=== PATIENT | male | born 1950 | race Caucasian/White ===

== ENCOUNTER 2024-03-07 20:38 | Observation (INO) | payer MEDICARE, BC, SELFPAY ==
[2024-03-07] VITALS (8 sets, daily range): BP systolic 153–191; BP diastolic 84–105; BMI 26.6
[2024-03-07 17:54] LABS: % Basophils 0.5 % (0-2); % Eosinophils 1.8 % (0-6); % Immature Granulocytes 0.8 % (0-0.5); % Lymphocytes 23.8 % (20.5-51.1); % Neutrophils 66.1 % (42.2-75.2); Absolute Eosinophils 0.1 10^3/uL (0-0.7); Absolute Immature Granulocytes 0.1 10^3/uL (0-0.05); Absolute Lymphocytes 1.8 10^3/uL (1.2-3.4); Absolute Monocytes 0.5 10^3/uL (0.1-0.6); Absolute Neutrophils 5.1 10^3/uL (1.4-6.5); Hematocrit 40.1 % (39.0-52.0); Hemoglobin 14.3 g/dL (13.0-18.0); Mean Corp Hgb Conc. 35.7 g/dL (33.0-37.0); Mean Corpuscular Hgb 32.1 pg (27.0-31.0); Mean Corpuscular Volume 90.1 fL (80.0-94.0); Mean Platelet Volume 10.4 fL (7.4-10.4); Nucleated Red Blood Cells % 0 % (-); Platelet Count 169 10^3/uL (130-400); Red Blood Cell Count 4.45 10^6/uL (4.70-6.10); Red Cell Dist. Width 12.8 % (11.5-14.5); White Blood Cell Count 7.7 10^3/uL (4.8-10.8)
[2024-03-07 18:03] LABS: ALT (SGPT) 26 U/L (0-50); AST (SGOT) 30 U/L (17-59); Albumin 4.6 g/dl (3.5-5.0); Alkaline Phosphatase 63 U/L (38-126); Blood Urea Nitrogen 29 mg/dl (9-20); Calcium 9.6 mg/dl (8.4-10.2); Carbon Dioxide 25 mmol/L (22-30); Chloride 104 mmol/L (98-107); Glucose 179 mg/dl (70-99); Sodium 137 mmol/L (135-145); Total Bilirubin 1.3 mg/dl (0.2-1.3); Total Protein 7.6 g/dl (6.3-8.2); eGFR 58.37
--- NOTE | 2024-03-07 18:05 | ED.GENMED ---
History of Present Illness
General
Chief Complaint: Change in Mental Status
Source: patient and ambulance crew
Exam Limitations: none
Time Seen by Provider: 03/07/24 17:45
Nursing documentation reviewed up to this point in time: agreed with
History of Present Illness
History of Present Illness:
73-year-old male with a past medical history of hyperlipidemia who presents to the emergency room via EMS for evaluation of confusion. Patient was apparently at dinner with his prior to arrival, he says that he was in the middle of the meal
and became acutely confused. Per EMS reported that he was 'smiling funny' and appeared very confused. EMS brought patient to the emergency room evaluated. He was hypertensive per EMS but otherwise normal vitals. Blood glucose was normal.
On arrival patient says he is anxious and is having some difficulty with recall/cognition. He denies any headache. Denies any neck pain. He denies any weakness or numbness in his extremities. He denies any difficulty with his speech or slurring
of his speech. He denies any loss of vision. He denies any other complaints. He is not on blood thinners.
Review of Systems
Review of Systems
All Other Systems: ROS reviewed and negative except as documented in HPI and ROS
Constitutional: Denies fever
Respiratory: Denies trouble breathing
Cardiac: Denies chest pain or palpitations
ABD/GI: Denies abdominal pain, nausea or vomiting
: Denies flank pain
Musculoskeletal: Denies neck pain or back pain
Neurological: Reports other (Confusion); Denies dizzy, headache, weakness or numbness
Psychiatric: Reports anxiety
Phy Exam
Physical Exam
Physical Exam:
General: Awake, alert, oriented x2 (difficulty with year); anxious but not in acute distress
Head: Normocephalic, atraumatic
Eyes: Conjunctiva normal, EOMI, pupils equal round reactive to light bilaterally
Throat: Airway intact, handling secretions
Neck: Trachea midline, supple without meningismus
Lungs: Clear to auscultation bilaterally, no wheezing, rales, rhonchi
Heart: Regular rate and rhythm, no murmurs, gallops, or rubs
Abd: Soft, non distended, nontender
Neuro: Cranial nerves intact 2 through 12, speech is fluent with no dysarthria or aphasia, no limb ataxia, motor and sensory function is intact and symmetric in the upper and lower extremities
Skin: no rash
Extremities: No edema in extremities, equal pulses in all extremities
Scores
NIH Stroke Score
Level of Consciousness: 0 - Alert
LOC Questions: 1-Answers one correctly
LOC Commands: 0-Performs both correctly
Best Horizontal Gaze: 0-Normal
Visual Carlos: 0=Normal, no visual loss
Facial Palsy: 0=Normal, symmetrical
Motor - Right Arm: 0=No drift 10 seconds
Motor - Left Arm: 0=No drift 10 seconds
Motor - Right Le-No drift 5 seconds
Motor - Left Le-No drift 5 seconds
Limb Ataxia: 0-Absent
Sensation: 0-Normal
Best Language: 0-No aphasia
Dysarthria: 0-Normal
Extinction and Inattention: 0-No abnormality
Total Score:: 1
Heart Failure Risk
Heart Failure Risk Score: Not Applicable
Heart Score for Chest Pain Patients
STEMI patient?: Not applicable
Withdrawal Assessment of Alcohol
Withdrawal Assessment Completed?: Not applicable
Course
Orders/Labs/Results
Orders:
Orders
03/07/24 17:45
CMP [Comprehensive Metabolic Panel] Urgent
Complete Blood Count/With Diff Urgent
03/07/24 17:51
CT Head W/o Cont STROKE ALERT Urgent
Reason For Exam: CVA
03/07/24 17:57
NEUROLOGY CONSULT Urgent
Consulting Provider: Tone Anne
Was physician already notified: Yes
03/07/24 18:32
HydrALAZINE [Apresoline] 5 mg IV NOW STA
03/07/24 18:33
Aspirin 325 mg PO NOW STA
03/07/24 19:23
Electrocardiogram (*1) Urgent
Reason for Study: TIA/Stroke
EKG- Treatment ONCE
Abnormal Lab Results
03/07/24
17:45
RBC 4.45 L 10^6/uL
(4.70-6.10)
MCH 32.1 H pg
(27.0-31.0)
Abs Immat Gran (auto) 0.1 H 10^3/uL
(0-0.05)
Immature Gran % 0.8 H %
(0-0.5)
BUN 29 H mg/dl
(9-20)
Glucose 179 H mg/dl
(70-99)
03/07/24 17:45
03/07/24 17:45
Vital Signs
Initial and Last Documented VS:
Initial Vital Signs
BP
191/105
03/07/24 17:40
Last Documented Vital Signs
Pulse Resp BP Pulse Ox
80 17 161/86 98
03/07/24 18:45 03/07/24 18:45 03/07/24 18:45 03/07/24 18:43
MDM/Problems Addressed
Differential Diagnosis Includes:
Stroke/TIA, transient global amnesia, seizure, complex migraine, hypertensive crisis
MDM/Problems Addressed:
73-year-old male with past medical history of hyperlipidemia who presents to the emergency room via EMS for acute onset of confusion at dinner tonight. Onset was roughly 5 PM. Hypertensive but otherwise normal vitals. Physical exam as above. He
still has some slight difficulty with recall�had trouble with telling me the year, had trouble telling me his address/where he lives. No other focal neurologic findings on exam. NIH stroke scale 1. Stroke alert was called on arrival. Will send
for a CT head. Will check CBC, CMP, EKG. Case was discussed with neurology who are en route to evaluate.
CT head negative. Labs reviewed: CBC and CMP no clinically significant abnormalities. Neurology evaluated the bedside; suspect likely hypertensive crisis. Recommended hydralazine 5 mg, goal blood pressure initially 160/90. Treated with aspirin,
no Plavix for now. Admit for continued observation, MRI/MRA to rule out stroke or carotid disease.
Blood pressure improved after hydralazine now 161/86. Patient's symptoms seem to have resolved now awake and alert with no confusion or cognitive issues. Will admit for continued care, case discussed with hospitalist for admission.
Chronic conditions affecting care:
Hyperlipidemia
Acute Exacerbation and/or Progression of Chronic Illness:
Acutely hypertensive
Acute Exacerbation and/or Progression of Chronic Illness: HTN
*Radiology
Radiology exam reviewed: radiology read reviewed
*Pulse Oximetry
Patient hypoxic: no
*EKG
Interpreted by ED Provider?: Yes
Heart Rate: 74
Rate: normal
Rhythm: sinus
Sealy: normal axis
Interval: normal interval
QRS Pattern: right bundle branch block
Ischemia: no ischemia
*Critical Care Note
Total Time (30-74mins, 75-104mins- exclusive of procedures): Not Applicable
Data Reviewed
Source: patient and ambulance crew
Patient Management
Discussion with other providers: Hospitalist (Discussed with hospitalist) and Crack Off Person (Case discussed with neurology)
Escalation/DeEscalation of care consider admission/obs:
Admission indicated
ED Attending Note
-
Portions of this chart may have been created with voice recognition software.� Occasional wrong word or��sound alike� substitutions may have occurred due to the inherent limitations of voice recognition software.
Discharge Plan
Departure
Patient Disposition: Admit
Date of Disposition: 03/07/24
Time of Disposition: 19:25
Admit to doctor: Jered
Presentation/result/management discussed w/ accepting MD/DO: Hospitalist
Discharge Problem:
Hypertensive crisis, Brain TIA
Prescriptions:
No Action
sildenafil 25 mg tablet
25 mg PO DAILYPRN PRN (Reason: ed)
omeprazole 20 mg Tablet,Delayed Release (Dr/Ec)
20 mg PO DAILYPRN PRN (Reason: gerd)
Interventions
Interventions:
*Risk Screen - Suicide Last Done: 03/07/24 17:43
*General Assessment Last Done: 03/07/24 17:43
*Neglect/Abuse Screening Last Done: 03/07/24 17:43
*ED COVID-19 Vaccine History Last Done: 03/07/24 17:43
ED- Neurological Assessment Last Done: 03/07/24 18:07
ED Swallowing Screen Last Done: 03/07/24 18:35
Discharge Date and Time
Print Language: FILIPINO
[2024-03-07] MEDS: ASPIRIN 325 MG PO (18:44)
[2024-03-07] MEDS: APRESOLINE 5 MG IV (18:45)
--- NOTE | 2024-03-07 19:27 | HPS.HSE ---
Addendum entered and electronically signed by Ulises Lawton DO 03/07/24 21:26:
Patient seen and examined independently. Agree with findings and plan as set forth by TRACEE Murillo.
Patient is a 73y M with PMH significant for hypertension and aortic stenosis who presents to ED for evaluation of episode of confusion this evening. Patient was out to dinner with his when she noted he was 'smiling oddly' and not making any
sense in speech. EMS was called and patient was brought to the ED for further evaluation. He was hypertensive for EMS and on arrival here to the ED. Patient was AA+Ox3 for EMS and here in the ED. He does not recall the events at dinner.
Patient states that he is having floors refinished / varnished in his home. He has been sleeping in the basement and notes that he has felt 'a little lightheaded' recently which he attributes to the fumes.
He took a Viagra this AM (he uses this PRN).
Ass:
Confusion
? TIA versus Hypertensive Emergency v Other
Hypertension - Not Benign
Aortic Stenosis
GERD
Plan:
Observe overnight for further evaluation and treatment.
Follow for any new / recurrent Neuro changes.
MRI in AM.
Continue ASA daily for now.
Monitor BP for changes. Hydralazine PRN to keep SBP < 160.
Add PO medication in the AM if needed for ongoing BP control.
Neurology evaluation appreciated.
? Episode related to fumes exposure, etc.
Original Note:
Family Physician
-
Family Physician: Darinel Salcedo
Chief Complaint
-
confusion
History of Present Illness
73 year old with PMH For HLD,aortic valve stenosis, GERD presented to us with confusion while he was having dinner at the restaurant. patient does not remember anything. the confusion lasted for 20minutes, till he got here. at present mentation
improved. he is able to answers question appropriately. he denied any focal weakness. denied ZAMORANO, dizzy or syncopal episode. denied fever chills, chest pain, sob. denied abdominal pain,n,v,d. denied dysuria or hematuria.
he is getting his floor done, they been staying in the basement for past three days. the smell of fumes was making him slight lightheaded.
CT head negative. patient was noted hypertensive. received a dose of hydralazine in ER. admitting for further management.
Medical History
Past Medical History
Past Medical History: Reports Other
Additional Past Medical History:
GERD
Hyperlipidemia
Aortic valve stenosis
Past Surgical History: Reports Other
Additional Past Surgical History:
Teeth implant
Cataract both eyes
Knee surgery
Social History
Tobacco: Non-smoker
Alcohol: Occasional
Drug: None
Personal:
Living: With Family
Family History
Family History: Not pertinent
Allergies / Home Medications
Allergies reflects when Allergies were last updated in [facility].
Home Medications with original date entered in [facility]
Allergy/Medication List:
Allergies
Allergy/AdvReac Type Severity Reaction Status Date / Time
No Known Allergies Allergy Verified 03/07/24 17:43
Home Medications
omeprazole 20 mg tablet,delayed release 20 mg PO DAILYPRN PRN gerd 03/07/24
sildenafil 25 mg tablet 25 mg PO DAILYPRN PRN ed 03/07/24
Review of Systems
-
Constitutional: Reports No Symptoms
EENT: Reports No Symptoms
Respiratory: Reports No Symptoms
Cardiac: Reports No Symptoms
Abdomen/GI: Reports No Symptoms
: Reports No Symptoms
Musculoskeletal: Reports No Symptoms
Skin: Reports No Symptoms
Neurological: Reports Other (confusion)
Endocrine: Reports No Symptoms
Hematologic/Lymphatic: Reports No Symptoms
Psych: Reports No Symptoms
Physical Exam
Vital Signs
Vital Signs
Pulse Resp BP Pulse Ox
80 17 161/86 98
03/07/24 18:45 03/07/24 18:45 03/07/24 18:45 03/07/24 18:43
Physical Exam
General: Well Developed, Well Nourished and No Apparent Distress
HEENT: NormoCephalic, Moist mucous membranes and Atraumatic
Respiratory: Clear
Cardiac: S1/S2 and Regular Rhythm; No Murmur or Rub
GI: Soft, Non Tender, Non Distended and Normal Bowel Sounds; No Organomegaly
Rectal: Deferred by Provider
Musculoskeletal: No Clubbing, No Cyanosis and No Edema
Skin: No Rash
Neuro: AO x 3 and Nonfocal/grossly intact
Psych: Calm
Laboratory Results
-
03/07/24 17:45
03/07/24 17:45
Laboratory Results
Total Bilirubin 1.3 mg/dl (0.2-1.3) 03/07/24 17:45
AST 30 U/L (17-59) 03/07/24 17:45
ALT 26 U/L (0-50) 03/07/24 17:45
Alkaline Phosphatase 63 U/L (38-126) 03/07/24 17:45
Data Reviewed
-
CT Scan: Report Reviewed by me
Lab Data: Labs Reviewed by me
Impression/Plan
-
#metabolic encephalopathy likely from hypertensive urgency vs TIA
-at present mentation improved
-Blood pressure improved with IV hydralazine
-Continue aspirin
-Obtain MRI/MRI
-Obtain A1c, lipid profile
-PT/OT consult
-Neuro following patient
-Allow permissive hypertension with a goal of 160/90
-Head CT with no acute findings
-hydralazine added for SBp>160,DBP>90
#hxt of Aortic valve stenosis
-working on getting cardiology
#GERD
-PPI continued
#DVT prophylaxis
-scd
#CODE status
-full code
--- NOTE | 2024-03-07 21:15 | PTCARENOTE ---
Pt arrived from ED via stretcher and ambulated to bed. Pt is AAOx3, VSS, and w/o complaints of pain. Pt is resting comfortably w/ call iraheta within reach.
[2024-03-07 21:51] LABS: Troponin I 0.063 ng/ml
[2024-03-07] MEDS: LIPITOR 40 MG PO (22:07)
[2024-03-07 22:15] LABS: Urine Albumin Negative (Neg - Trace); Urine Bilirubin Negative (Negative); Urine Character Clear (Clear); Urine Color Yellow; Urine Glucose Negative (Negative); Urine Ketone Negative (Negative); Urine Leukocyte Trace (Negative); Urine Nitrite Negative (Negative); Urine Occult Blood Negative (Negative); Urine Specific Gravity 1.015 (<1.030); Urine Urobilinogen Negative (Neg - 1+); Urine pH 6.5 (5.0-9.0)
[2024-03-07 22:29] LABS: Urine Red Blood Cell 0-2 /HPF (0-2)
[2024-03-07 22:30] LABS: Urine Bacteria Few (Negative)
[2024-03-08 03:31] VITALS: BP 159/93
[2024-03-08 03:38] LABS: Troponin I 0.062 ng/ml
[2024-03-08] MEDS: PROTONIX 40 MG PO (08:08)
[2024-03-08] MEDS: LOW STRENGTH ASPIRIN 81 MG PO (08:08)
[2024-03-08] MEDS: FLUSH (NSS) 1 FLUSH IV (08:08)
[2024-03-08 08:12] VITALS: BP 179/96
[2024-03-08 08:22] LABS: Hematocrit 40.6 % (39.0-52.0); Hemoglobin 14.5 g/dL (13.0-18.0); Mean Corp Hgb Conc. 35.7 g/dL (33.0-37.0); Mean Corpuscular Hgb 32.7 pg (27.0-31.0); Mean Corpuscular Volume 91.4 fL (80.0-94.0); Mean Platelet Volume 11.1 fL (7.4-10.4); Platelet Count 167 10^3/uL (130-400); Red Blood Cell Count 4.44 10^6/uL (4.70-6.10); Red Cell Dist. Width 12.9 % (11.5-14.5); White Blood Cell Count 8.1 10^3/uL (4.8-10.8)
[2024-03-08 08:59] LABS: Blood Urea Nitrogen 26 mg/dl (9-20); Calcium 9.4 mg/dl (8.4-10.2); Carbon Dioxide 23 mmol/L (22-30); Chloride 104 mmol/L (98-107); Estimated Creatinine Clearance 48 ml/min; Glucose 78 mg/dl (70-99); HDL Cholesterol 42 mg/dl; LDL Cholesterol, Calculated 208 mg/dl; Potassium 4.1 mmol/L (3.5-5.1); Sodium 136 mmol/L (135-145); Total Cholesterol 276 mg/dl (50-199); Triglyceride 134 mg/dl (10-149); Very Low Density Lipoprotein 26 mg/dl (0-30); eGFR > 60.00
[2024-03-08 09:45] LABS: Glycohemoglobin (HgbA1c) 5.5 % (4.0-5.6)
--- NOTE | 2024-03-08 10:46 | CON.NEURO4 ---
Consultation - Neurology 4
-
CONSULTING PHYSICIAN: Tone Anne MD
REFERRING PHYSICIAN: Hospitalist
DICTATED BY: Tone Anne MD
DATE/TIME OF REQUEST: March 07, 2024
DATE/TIME OF CONSULTATION: March 07, 2024 1800
Reason for Consultation: Slurred speech
History of Present Illness:
This is a 73 year old right handed male who has presented to the hospital with (chief complaint) of confusion. He gives a history of untreated hypertension, hyperlipidemia who presents to the emergency room via EMS for evaluation of confusion.
Patient was apparently at dinner with his prior to arrival, he says that he was in the middle of the meal and became acutely confused. Per EMS reported that he was 'smiling odd manner' and appeared confused. EMS brought patient to the
emergency room evaluated. He was hypertensive per EMS but otherwise normal vitals. Blood glucose was normal. On arrival patient says he is anxious and is having some difficulty with recall/cognition. He denies any headache. Denies any neck
pain. He denies any weakness or numbness in his extremities. He denies any difficulty with his speech or slurring of his speech. He denies any loss of vision. He denies any other complaints. He is not on blood thinners.
At the time of my exam patient was asymptomatic
Past Medical History: Hypertension
Surgical History: None
Family History: Noncontributory
Social History: lives at home with his . Does not smoke
Allergies: No known allergies
Home Medications: Omeprazole 20, sildenafil
Review of Symptoms:
Patient denies any fever, headache, chest pain, shortness of breath, GI or symptoms.
�Per the HPI.�All systems are reviewed negative except above.
�-
Vital Signs:
The patient has a
Pulse Resp BP Pulse Ox
80 17 161/86 98
03/07/24 18:45 03/07/24 18:45 03/07/24 18:45 03/07/24 18:43
Physical Exam:
The patient is afebrile, heart sounds S1 and S2 are regular , and chest is clear to auscultation bilaterally.
Neurologic Examination:
The patient is awake, alert and oriented x 3. (He/She) is able to follow commands and answer questions appropriately. There is no aphasia or dysarthria. On cranial nerve assessment, pupils are 3 mm bilateral, round and reactive to light and
accommodation. Visual vera are full. Extraocular movements are intact. Facial sensations are intact and bilaterally symmetrical, there is no facial asymmetry. Hearing is intact bilaterally to normal conversation volume. Tongue palate and uvula
are midline. Sternocleidomastoid strengths are full bilaterally. Motor strengths are 5/5 bilateral upper and lower extremities on medical research [place] scale. There is no drift or involuntary movement noted. Deep tendon reflexes are 2+ bilateral
upper and lower extremities and Babinski is absent bilaterally. Sensations of pain, touch, temperature and vibration are intact and bilaterally symmetrical. There was no extinction noted on double simultaneous stimulation. Coordination is intact by
finger to nose bilaterally. Romberg's negative gait is within normal limits
Lab Results: See addendum
Neuro Imaging: CT head atrophy, small vessel disease mild ventricular enlargent
Impression:
(Mr. CHERI TRUJILLO is a 73 year old M who has presented to the hospital with (symptoms/chief complaint).
Differentials for the patient's presentation include:
1. Hypertensive crisis
2. TIA
Recommendations:
1. Blood pressure management
2. Aspirin 81 daily
3. MRI/MRA of the head
4. Low-dose statin
5.
Discussed patient care with: Hospitalist
Allergies
-
Allergies
Allergy/AdvReac Type Severity Reaction Status Date / Time
No Known Allergies Allergy Verified 03/07/24 17:43
Vital Signs and Labs
-
Vital Signs and Labs:
Vital Signs
Temp Pulse Resp BP Pulse Ox
36.6 C 65 18 179/96 97
03/08/24 08:12 03/08/24 08:12 03/08/24 08:12 03/08/24 08:12 03/08/24 08:12
Lab Results
03/08/24 06:43
03/08/24 06:43
Sodium 136 mmol/L (135-145) 03/08/24 06:43
Potassium 4.1 mmol/L (3.5-5.1) 03/08/24 06:43
BUN 26 mg/dl (9-20) H 03/08/24 06:43
Glucose 78 mg/dl (70-99) 03/08/24 06:43
Calcium 9.4 mg/dl (8.4-10.2) 03/08/24 06:43
LDL Cholesterol, Calc 208 mg/dl 03/08/24 06:43
Medications
-
Active Medications
Generic Name Dose Route Start Last Admin
Trade Name Freq PRN Reason Stop Dose Admin
Acetaminophen 650 mg 03/07/24 20:56
Acetaminophen 650 Mg Rectal Suppository RECTAL 04/04/24 20:55
Q4HPRN PRN
ZAMORANO, mild pain, or temp >100.4F
Acetaminophen 650 mg 03/07/24 20:56
Acetaminophen 325 Mg Tablet PO 04/04/24 20:55
Q4HPRN PRN
ZAMORANO, mild pain, or temp >100.4F
Aspirin 81 mg 03/08/24 08:00 03/08/24 08:08
Aspirin 81 Mg Chewable Tablet PO 04/05/24 07:59 81 mg
DAILY BALAJI Administration
Atorvastatin Calcium 40 mg 03/07/24 20:56 03/07/24 22:07
Atorvastatin (Lipitor) 40 Mg Tablet PO 04/04/24 20:55 40 mg
QPM BALAJI Administration
Hydralazine HCl 5 mg 03/08/24 00:00
Hydralazine 20 Mg/Ml Vial IV 04/05/24 00:00
Q6HPRN PRN
hypertension
Pantoprazole Sodium 40 mg 03/08/24 08:00 03/08/24 08:08
Pantoprazole 40 Mg Delayed Release Tablet PO 04/05/24 07:59 40 mg
DAILY BALAJI Administration
Sodium Chloride 0 flush 03/07/24 22:00 03/08/24 08:08
Sodium Chloride 0.9% (Flush) Syringe IV 04/04/24 21:59 1 flush
PER PROTOCOL BALAJI Administration
Home Medications
�Medication �Instructions �Recorded
omeprazole 20 mg tablet,delayed 20 mg PO DAILYPRN PRN gerd 03/07/24
release
sildenafil 25 mg tablet 25 mg PO DAILYPRN PRN ed 03/07/24
[2024-03-08 11:01] VITALS: BP 188/101; PULSE 70; O2SAT 96
--- NOTE | 2024-03-08 11:10 | W.PN.HOSP.TC ---
Addendum entered and electronically signed by Anabella Toussaint MD 03/08/24 12:36:
total DC time 36 min
Original Note:
Today's Communication/Plan
-
see A/P
Assessment / Plan
Assessment / Plan
73 yo M with PMH significant for hypertension and aortic stenosis who presented with confusion. Patient was out to dinner with his when she noted he was 'smiling oddly' and not making any sense in speech.
EMS was called and patient was brought to the ED for further evaluation. He was hypertensive for EMS and on arrival here to the ED.
Patient was AA+Ox3 for EMS and here in the ED. He does not recall the events at dinner.
Patient states that he is having floors refinished / varnished in his home. He has been sleeping in the basement and notes that he has felt 'a little lightheaded' recently which he attributes to the fumes.
He took a Viagra in the morning of admission (he uses this PRN).
A/P:
# Confusion, likely due to Hypertensive Emergency vs related to fumes exposure at home etc
Start Norvasc 5 mg
Acute stoke ruled out with negative MRI brain , MRA brain and neck reviewed also unrevealing
Neurology evaluation appreciated.
# Hypertension emergency
In addition IV hydralazine PRN, start Norvasc 5 mg
Monitor BP with PCP
# Aortic Stenosis
informed pt to follow up with card outpt
# GERD
updated on the phone
Anticipated Discharge: Today
Subjective/Interval History
-
Date of Service: March 08, 2024
Objective Data
-
Labs:
Laboratory Results
03/08/24
06:43
WBC 8.1
Hgb 14.5
Hct 40.6
Plt Count 167
Sodium 136
Potassium 4.1
Chloride 104
Carbon Dioxide 23
BUN 26 H
Creatinine 1.2
Glucose 78
Calcium 9.4
Vital Signs:
Vital Signs
Temp Pulse Resp BP Pulse Ox
36.6 C 65 18 179/96 97
03/08/24 08:12 03/08/24 08:12 03/08/24 08:12 03/08/24 08:12 03/08/24 08:12
Review of Systems
-
All other systems: Reviewed and negative
Physical Exam
-
General: Well Developed, Well Nourished, No Apparent Distress, Comfortable and Conversant; Negative Respiratory Distress
HEENT: Normocephalic, Atraumatic, Nose Appears Normal and Ears Appear Normal; Negative Oxygen
Respiratory: Clear to Auscultation and Non Labored Respirations; Negative Accessory Resp Muscle Use
Cardiac: Regular Rhythm, S1/S2 and Murmur (systolic)
GI: Soft, Nontender, Nondistended and Normal Bowel Sounds
Skin: Warm and Dry
Neuro: Awake, Alert, Oriented and AO x 3
Psych: Calm and Intact Judgement/Insight
Data Reviewed
-
MRI: Report Reviewed by me and Discussed with Patient
Labs: Labs Reviewed by me
[2024-03-08 11:55] VITALS: BP 176/94
[2024-03-08] MEDS: NORVASC 5 MG PO (12:18)
--- NOTE | 2024-03-08 12:31 | W.DCSUMMARY ---
Discharge Summary
Discharge Data
Date of Admission: 03/07/24
Date of Discharge: 03/08/24
-
Pending Results: No
Hospital Course
Principal Diagnosis:
Confusion, likely due to hypertension urgency versus fume exposure at home
Hypertension urgency
Chronic Diagnoses:�
Aortic Stenosis
Gastroesophageal reflux disease
Consultations:�
Neurology
Procedures:�
None
Clinical course:�
This is a 73-year-old male, with past medical history as stated above, who presented with confusion while having dinner with . He does not remember the episode, but according to his he was smiling oddly and was not making sense in his
speech. These symptoms resolved uneventfully.
Problem 1:
Confusion, likely due to hypertension urgency versus fume exposure at home.
He was started with Norvasc 5 mg daily and has been for him to follow-up with his PCP for blood pressure monitoring/control.
Acute stroke was ruled out with negative MRI brain. His MRA brain and neck were also unrevealing.
As for the rest of his medical problems, they were stable during his hospital stay.
Discharge Plan
-
Patient Disposition: Home (Routine Discharge)
Discharge Diagnosis/Procedures: resolved confusion likely due to hypertensive urgency
Condition: Fair
Diet: As tolerated, Low Fat, Low Cholesterol and Low Sodium
Activity: As tolerated
Driving Restrictions: As prior to admission
Referrals:
Darinel Salcedo MD [Family Provider] - in less than 1 week
Additional Discharge Medication Instructions: you were started with Norvasc 5 mg daily for better BP control
you were also started with baby ASA for stroke prevention.
Prescriptions:
New
amlodipine 5 mg Tablet
5 mg PO DAILY Qty: 30 0RF
aspirin 81 mg Tablet,Chewable
81 mg PO DAILY Qty: 30 0RF
Continued
sildenafil 25 mg tablet
25 mg PO DAILYPRN PRN (Reason: ed)
omeprazole 20 mg Tablet,Delayed Release (Dr/Ec)
20 mg PO DAILYPRN PRN (Reason: gerd)
Discharge Orders:
Discharge Patient (As Directed); Ordered 03/08/24
Ordered By: Anabella Toussaint
Discharge Date and Time
Print Language: YORUBA
--- NOTE | 2024-03-08 12:51 | PTOTSP ---
pt currently requires no assistance with simple ADLs, functional transfers, ambulation. no overt deficits noted, no acute OT needs identified. will sign off.
--- NOTE | 2024-03-08 13:06 | PTOTSP ---
SPEECH THERAPY SWALLOW AND SPEECH/LANGUAGE/COGNITIVE COMMUNICATION EVALUATION:
Patient exhibits grossly functional oropharyngeal swallow at this time. No history of dysphagia noted. MRI negative for acute intracranial abnormality. Recommend continue Regular texture solids, thin liquids. Medications whole with liquid as best
tolerated. General aspiration precautions. Skilled ST services for swallow therapy are not indicated at this time.
Patient exhibits grossly functional speech, expressive/receptive language, and cognitive communication skills. Patient endorsed mild STM difficulties at baseline. Patient appears to be at baseline level of functioning at this time. Skilled ST
services for speech/language/cognitive communication are not indicated at this time.
ST to sign off.
RECOMMEND:
1) Regular texture diet, thin liquids
2) Medications whole with liquid as best tolerated
3) General aspiration precautions
4) No skilled ST services are indicated at this time; ST to sign off
--- NOTE | 2024-03-08 17:17 | CM ---
Chart reviewed after patient had left for home and called him this afternoon. Pt advised he is (I) amb and adls, lives with his in a multistory home with 2 entry steps. Main floor has bedroom and bathroom, so no steps once inside if staying
on the main floor.
Pt denies need for resources or assistance.
PCP: Darinel Salcedo
Pharmacy: [facility] in [place]
== END 2024-03-08 13:14 | disposition home or self-care (01) ==
LOC: 4 EAST ACU 20:38
PROVIDERS: Registered Nurse; ADMITTING PHYSICIAN Hospitalist; ATTENDING PHYSICIAN Internal Medicine; CONSULT PHYSICIAN Psychiatry & Neurology Neurology; EMERGENCY PHYSICIAN Emergency Medicine; FAMILY PHYSICIAN Family Medicine
DX: I16.0 Hypertensive urgency (principal); R41.82 Altered mental status, unspecified; E78.5 Hyperlipidemia, unspecified; I10 Essential (primary) hypertension; K21.9 Gastro-esophageal reflux disease without esophagitis; I35.0 Nonrheumatic aortic (valve) stenosis; R42 Dizziness and giddiness; I67.82 Cerebral ischemia; G31.9 Degenerative disease of nervous system, unspecified; I67.1 Cerebral aneurysm, nonruptured; Z79.82 Long term (current) use of aspirin
CPT/HCPCS: 70450; 70544; 70548; 70551; 80048; 80053; 80061; 81003; 81015; 83036; 84484; 85025; 85027; 92523; 92610; 93005; 96374; 97161; 97165; 99285; A9575

== ENCOUNTER → 2024-08-07 08:21 | Outpatient (REF) | payer MEDICARE, BC, SELFPAY | LOC: HWRCS 08:21 | PROVIDERS: ATTENDING PHYSICIAN Internal Medicine Cardiovascular Disease; PRIMARYCARE PHYSICIAN Physician Assistant | DX: I10 Essential (primary) hypertension (principal) | CPT/HCPCS: 93306 ==

== ENCOUNTER → 2025-02-14 10:47 | Outpatient (REF) | payer MEDICARE, BC, SELFPAY | LOC: HWRAD 10:47 | PROVIDERS: ATTENDING PHYSICIAN Physician Assistant | DX: M54.2 Cervicalgia (principal) | CPT/HCPCS: 72052 ==

== ENCOUNTER → 2025-03-10 10:10 | Outpatient (REF) | payer MEDICARE, BC, SELFPAY | LOC: HWRCS 10:10 | PROVIDERS: ATTENDING PHYSICIAN Internal Medicine Cardiovascular Disease; FAMILY PHYSICIAN Physician Assistant | DX: I35.0 Nonrheumatic aortic (valve) stenosis (principal) | CPT/HCPCS: 93306 ==

== ENCOUNTER 2025-03-11 08:33 | Emergency (ER) | payer MEDICARE, BC, SELFPAY ==
[2025-03-11 08:37] VITALS: BP 176/98
[2025-03-11 09:12] LABS: Hematocrit 36.0 % (39.0-52.0); Hemoglobin 13.1 g/dL (13.0-18.0); Mean Corp Hgb Conc. 36.4 g/dL (33.0-37.0); Mean Corpuscular Volume 89.3 fL (80.0-94.0); Nucleated Red Blood Cells % 0 % (-); Platelet Count 173 10^3/uL (130-400); Red Cell Dist. Width 13.6 % (11.5-14.5)
[2025-03-11 09:18] LABS: INR 1.15; PT 15.1 Sec (11.4-14.6)
[2025-03-11 09:19] LABS: APTT 23.5 Sec (23.4-35.0)
[2025-03-11 09:28] LABS: ALT (SGPT) 32 U/L (0-50); AST (SGOT) 28 U/L (17-59); Albumin 4.6 g/dl (3.5-5.0); Alkaline Phosphatase 59 U/L (38-126); Blood Urea Nitrogen 34 mg/dl (9-20); Calcium 9.4 mg/dl (8.4-10.2); Carbon Dioxide 22 mmol/L (22-30); Chloride 106 mmol/L (98-107); Glucose 177 mg/dl (70-99); Potassium 4.1 mmol/L (3.5-5.1); Sodium 137 mmol/L (135-145); Total Protein 8.3 g/dl (6.3-8.2); eGFR > 60.00
[2025-03-11 09:36] LABS: Troponin I < 0.012 ng/ml
--- NOTE | 2025-03-11 11:38 | ED.GENMED ---
History of Present Illness
General
Chief Complaint: Eye Problems
Source: patient and spouse
Exam Limitations: none
Time Seen by Provider: 03/11/25 11:03
Nursing documentation reviewed up to this point in time: agreed with
History of Present Illness
History of Present Illness:
Patient is a 74-year-old male with history of aortic stenosis, hypertension, hyperlipidemia who presents to the emergency department concerns of double vision as well as transient episode of confusion this morning. Patient states that he started to
notice intermittent double vision yesterday only while he was driving. Today � he states that since he woke up this morning he has had constant double vision. He describes a horizontal double vision only when both eyes are open. He states that when
he is using his peripheral vision in either direction he does not see double.
Patients states that in addition to double vision this morning he seemed to be confused. He said a few things at home that just 'didn�t make sense'a and when she brought him to the primary care doctor for evaluation he could not remember his
address. She doesn�t believe that he was having difficulty necessarily finding words rather than a general confusion.
Patient denies any associated headache, nausea, dysarthria, dysphasia, or ataxia. He denies any weakness or numbness/tingling in his extremities. He denies recent head trauma.
Patient does have a history of a somewhat similar episode of transient confusion last year and was diagnosed with a suspected TIA. Patient takes a baby aspirin and a statin.
Review of Systems
Review of Systems
Allergies reviewed?: Yes
All Other Systems: ROS reviewed and negative except as documented in HPI and ROS
Phy Exam
Physical Exam
Physical Exam:
Vitals: Hypertensive, otherwise vital signs stable. Afebrile
General: Patient is anxious appearing.
Skin: Warm and dry, no rashes or lesions
Head: Normocephalic, atraumatic
Eyes: Sclera nonicteric. Pupils equal round and reactive to light bilaterally. EOMs intact. Visual vera intact with horizontal binocular diplopia. No nystagmus.
Throat: Protecting airway
Neck: Normal ROM, no cervical spine tenderness, no meningismus
Cardiac: Regular rate and rhythm, no murmurs.
Pulm: Normal respiratory effort, no wheezes, rales, rhonchi heard on exam
Abdomen: No abdominal tenderness.
Extremities: No evidence of cyanosis or edema. Strength 5/5 in bilateral upper and lower extremities. Sensation intact
Neuro: AAOx3. CN II-XII grossly intact on examination. Normal [id number]. Fluid speech. Steady gait. No facial droop or asymmetry
Psychiatric: Normal affect.
Course
Orders/Labs/Results
Orders:
Orders
03/11/25 08:[address] [CT Head W/o Iv Contrast] Urgent
Comment:
Reason For Exam: double vision
03/11/25 08:44
ECG [Electrocardiogram (*1)] Urgent
Reason for Study: Hypertension, Benign
03/11/25 08:45
EKG- Treatment ONCE
03/11/25 08:53
Alcohol Urgent
Cardiovascular Evaluation Urgent
Comment: ADDON
Complete Blood Count/With Diff Urgent
Comprehensive Metabolic Panel Urgent
Free T4 Urgent
PTT Urgent
Prothrombin Time Urgent
TSH Reflex To Free T4 Urgent
Comment: TSH REFLEX ADDED ON BY FLOOR 11:30AM 03-11-25
Troponin I Urgent
Vitamin B12 Urgent
Comment: ADDON
03/11/25 11:31
Add On- LAB Urgent
Tests Added?: TSH w/ reflex to T4
03/11/25 11:48
NEUROLOGY CONSULT Urgent
Consulting Provider: Ladarius Lehman
Was physician already notified: Yes
03/11/25 12:08
Add On- LAB Routine
Tests Added?: lipid panel, B12
03/11/25 12:44
Add On- LAB Urgent
Tests Added?: alcohol
03/11/25 13:05
Urine Drug Abuse Screen Urgent
Date Specimen was Collected: 03/11/25
Time Specimen was Collected: 13:03
Abnormal Lab Results
03/11/25
08:53
RBC 4.03 L 10^6/uL
(4.70-6.10)
Hct 36.0 L %
(39.0-52.0)
MCH 32.5 H pg
(27.0-31.0)
Absolute Monos (auto) 0.8 H 10^3/uL
(0.1-0.6)
PT 15.1 H Sec
(11.4-14.6)
BUN 34 H mg/dl
(9-20)
Glucose 177 H mg/dl
(70-99)
Total Bilirubin 1.6 H mg/dl
(0.2-1.3)
Total Protein 8.3 H g/dl
(6.3-8.2)
Triglycerides 178 H mg/dl
(10-149)
VLDL Cholesterol, Calc 35 H mg/dl
(0-30)
TSH (Reflex) 6.24 H uIU/ml
(0.47-4.68)
03/11/25 08:53
03/11/25 08:53
Vital Signs
Initial and Last Documented VS:
Initial Vital Signs
Temp Pulse Resp BP Pulse Ox
97.5 F 83 20 176/98 99
03/11/25 08:37 03/11/25 08:37 03/11/25 08:37 03/11/25 08:37 03/11/25 08:37
Last Documented Vital Signs
Temp Pulse Resp BP Pulse Ox
97.5 F 80 20 165/88 98
03/11/25 08:37 03/11/25 12:00 03/11/25 12:00 03/11/25 12:00 03/11/25 12:00
MDM/Problems Addressed
Differential Diagnosis Includes:
Not limited to: Viral illness, acute dehydration, CVA, cranial nerve palsy, hyperthyroidism, intracranial mass, etc.
MDM/Problems Addressed:
74-year-old male with history as documented presenting with binocular horizontal diplopia as well as transient confusion. No recent trauma. No other associated neurologic symptoms. Patient hypertensive on arrival with otherwise stable vital signs.
Physical exam as above.
Patient alert and oriented. No facial droop or asymmetry. Strength equal bilaterally with mild tremor. He has a normal cerebellar exam and visual vera appear intact. No obvious cranial nerve palsy however patient does have binocular horizontal
diplopia in central vision.
Basic labs and CT head obtained prior to my evaluation without any clinically significant abnormalities.
In light of double vision, along with transient confusion � concern for central process. Other possibilities would be viral illness, ocular etiology, hypertensive urgency, etc.
Neurology consulted who evaluated patient at bedside.
After bedside evaluation by neurology � they do not feel symptoms exhibit an emergent intracranial process, possible hypertensive encephalopathy vs TIA. Lipid panel, UDS added on by neurology. Neurologist does not recommend admission at this time
and outpatient MRI. He will continue to follow as an outpatient.
I did offer patient admission for observation/MRI however patient would prefer discharge home with primary care follow up.
He is stable without any new neurologic deficits. At this point - he will be discharged with very strict return precautions as well as outpatient MRI with primary care. Patient and patient�s comfortable w/ plan.
Chronic conditions affecting care:
Hypertension
Acute Exacerbation and/or Progression of Chronic Illness:
Acutely hypertensive
*Radiology
Radiology exam reviewed: radiology read reviewed
*Pulse Oximetry
SaO2: 99
Oxygen Mode of Delivery: Room air
Patient hypoxic: no
*EKG
Interpreted by ED Provider?: Yes
EKG Intrepretation Date: 03/11/25
Interpretation: normal
Comparison EKG: no changes
Heart Rate: 84
Rate: normal
Rhythm: sinus
[place]: normal axis
Interval: long QT
QRS Pattern: right bundle branch block
Ischemia: no ischemia
*Heavy Repairer Interpretation
Rate: Heavy Repairer- N/A
*Critical Care Note
Total Time (30-74mins, 75-104mins- exclusive of procedures): Not Applicable
Data Reviewed
Review of Other/Old Records Reveals: Radiology Studies (Head/neck MRA from 03/08/2024 -no specific carotid stenosis)
Patient Management
Discussion with other providers: [facility] Counsel[facility] (Case discussed with neurology)
ED Attending Note
-
Portions of this chart may have been created with voice recognition software.� Occasional wrong word or��sound alike� substitutions may have occurred due to the inherent limitations of voice recognition software.
Discharge Plan
Departure
Patient Disposition: Home (Routine Discharge)
Date of Disposition: 03/11/25
Time of Disposition: 13:29
Patient with high blood pressure during this ER visit?: Yes
Discharge Problem:
Double vision
Instructions: Double Vision (DC), BLOOD PRESSURE
Prescriptions:
No Action
sildenafil 25 mg tablet
25 mg PO DAILYPRN PRN (Reason: ed)
omeprazole 20 mg Tablet,Delayed Release (Dr/Ec)
20 mg PO DAILYPRN PRN (Reason: gerd)
amlodipine 5 mg Tablet
5 mg PO DAILY Qty: 30 0RF
aspirin 81 mg Tablet,Chewable
81 mg PO DAILY Qty: 30 0RF
Referrals:
John Zuniga PA [Family Provider, Family Practice] - Next open appointment
Activity Restrictions/Additional Instructions:
RETURN TO THE EMERGENCY DEPARTMENT WITH ANY HEADACHE, NECK PAIN, FEVERS, PERSISTENT/WORSENING VISUAL CHANGES, CHANGES IN MENTAL STATUS, DIZZINESS, DIFFICULTY AMBULATING, WORSENING SYMPTOMS, OR ANY OTHER CONCERNS
- As discussed�it is very important that you follow-up with your primary care provider as you will require an outpatient MRI of your brain for further evaluation.
- Continue to take your medications as prescribed.
- If you have your lab results/tests are still pending and we will contact you if these are out of range.
- Follow-up with primary care for further evaluation/management to ensure that your symptoms improve.
Monitor your symptoms closely and return to the emergency department with any acute worsening/new symptoms or any other concerns
Interventions
Interventions:
*Risk Screen - Suicide Last Done: 03/11/25 08:38
*General Assessment Last Done: 03/11/25 08:38
*Neglect/Abuse Screening Last Done: 03/11/25 08:38
*ED- Fall Risk Assessment Last Done: 03/11/25 11:26
*Nursing Disposition Last Done: 03/11/25 13:46
Discharge Date and Time
Discharge Date/Time: 03/11/25 13:46
Print Language: WELSH
--- NOTE | 2025-03-11 11:49 | CON.NEURO ---
Addendum entered and electronically signed by Ladarius Lehman MD 03/11/25 14:57:
Studies reviewed.
I have personally examined the patient. I reviewed and agree with the QUALITY ASSOCIATE's Note.
My addenda:
Awake, alert, interactive. No acute distress.
Speech intact.
Follows 2-step requests w/ mild difficulty. No tremor.
Extra-ocular movements demonstrates left eye 1+ esotropia which is variable.
Facial movements full and symmetric. Hearing intact to normal conversational volume.
Normal UE movements bilaterally.
Neck: full ROM.
Chest: no dyspnea
Heart: no JVD
Ext: (-) Clubbing, (-) Cyanosis, (-) Edema
IMPRESSIONS/RECOMMENDATIONS:
Abrupt onset of recurrent change in mental status, episodic diplopia, with gradual onset of tremor and erectile dysfunction
Differential diagnosis includes multisystem atrophy, hypertensive encephalopathy, and least likely TIA.
1 year ago CTA suggestive of intracranial atherosclerosis, therefore aspirin should be continued
Repeat CTA head and neck or MRA head and neck
Outpatient MRI of brain
Check blood work for metabolic abnormality producing symptoms
Based on the previously elevated cholesterol profile, patient should be initiated on atorvastatin 80 mg daily
D/W patient / family
All questions answered.
Will continue to follow as outpatient.
Original Note:
Documented by User: Vivi Renee NP 03/11/25 13:58
Neuro Assessment/Plan
Assessment
Patient is a 74-year-old male with history of aortic stenosis, hypertension, hyperlipidemia, TIA (02/2024) who presents to [facility] on 03/11/2024 for evaluation of concerns of double vision and transient confusion.
Head CT 03/11/2025: No acute intracranial abnormality noted. Mild atrophy. Stable
Brain MRI 03/08/2024: Moderate cerebral atrophy along with chronic small vessel ischemia in the cerebral white matter. No acute MR findings in the head
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 Follow-up MRA in 6 months recommended for reevaluation. Otherwise, normal MRA appearance to [place].
MRA neck 03/08/2024:
Short segment of approximately 70% stenosis at the origin of the right vertebral artery
No stenosis exceeding 50% in the internal or external carotid arteries
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 Follow-up MRA head in 6 months recommended for reevaluation.
Labs: TSH 6.24, T4 1.21, Tbili 1.6, BUN 34, LDL pending
Plan
Impression:
I. abrupt onset of diplopia with transient episode of confusion likely due to esotropia and hypertensive encephalopathy/TIA?
II. tremor
-will need MRI/MRA brain given known aneurysm arising from the lateral aspect of cavernous right internal carotid artery, may be done in the outpatient setting
-goal normotension
-check LDL with goal <70, continue statin therapy
-check blood work for metabolic disturbances
-continue aspirin 81 mg daily
-will need neurology follow up outpatient to evaluate tremor
-follow up with normal dice dealer outpatient
All questions encouraged and answered, plan of care discussed with Dr. Lehman, patient and family
Consultation
Order
Date of Consultation: 03/11/25
Requesting Provider: hospitalist
Reason for Consult: diplopia and confusion
Subjective/Objective
Subjective Data
Date of Service: March 11, 2025
Patient is a 74-year-old male with history of aortic stenosis, hypertension, hyperlipidemia, TIA (2023) who presents to [facility] on 03/11/2024 for evaluation of concerns of double vision and transient confusion. He had similar symptoms in February of 2024
was found to be hypertensive and diagnosed with TIA at that time. He states his binocular diplopia started yesterday around 8am when he went outside to his car. Diplopia is worse when looking straight ahead and not present when he closes one eye. He
and noted he was confused this morning he could not remember his address. He went to his doctor and was told his BP was elevated and to come to ED for evaluation. Confusion lasted about an hour and resolved after leaving the doctor's office. In
ED head CT showed no acute intracranial abnormality. BP elevated at 176/98. Neurology has been consulted to evaluate his binocular diplopia and transient confusion.
Objective Data
Vital Signs
Temp Pulse Resp BP Pulse Ox
97.5 F 83 20 176/98 99
03/11/25 08:37 03/11/25 08:37 03/11/25 08:37 03/11/25 08:37 03/11/25 11:38
Lab Results
03/11/25 08:53
03/11/25 08:53
PT 15.1 Sec (11.4-14.6) H 03/11/25 08:53
INR 1.15 03/11/25 08:53
APTT 23.5 Sec (23.4-35.0) 03/11/25 08:53
Sodium 137 mmol/L (135-145) 03/11/25 08:53
Potassium 4.1 mmol/L (3.5-5.1) 03/11/25 08:53
BUN 34 mg/dl (9-20) H 03/11/25 08:53
Glucose 177 mg/dl (70-99) H 03/11/25 08:53
Calcium 9.4 mg/dl (8.4-10.2) 03/11/25 08:53
Patient Allergies
No Known Allergies Allergy (Verified 03/07/24 17:43)
CVA Assessment
Onset of Stroke Symptoms
Onset of symptoms known: Yes
Date of onset of symptoms: 03/10/25
Time of onset of symptoms: 08:00
Time pt last seen normal is known: Yes
Date last time pt seen normal: 03/10/25
Time last time pt seen normal: 08:00
NIH Stroke Score
Level of Consciousness: 0 - Alert
LOC Questions: 0-Answers both correctly
LOC Commands: 0-Performs both correctly
Best Horizontal Gaze: 1-Partial gaze palsy
Visual Carlos: 0=Normal, no visual loss
Facial Palsy: 0=Normal, symmetrical
Motor - Right Arm: 0=No drift 10 seconds
Motor - Left Arm: 0=No drift 10 seconds
Motor - Right Le-No drift 5 seconds
Motor - Left Le-No drift 5 seconds
Limb Ataxia: 1-Present in one limb
Sensation: 0-Normal
Best Language: 0-No aphasia
Dysarthria: 0-Normal
Extinction and Inattention: 0-No abnormality
NIH Total Score:: 2
Tenecteplase Contraindications
Inclusion and Exclusion criteria reviewed: Yes
Reasons for NON-Tx with Thrombolytics ABSOLUTE Exclusions: Time-out of window
IAT Contraindications: >6 hrs from onset/last seen normal and NIHSS < 6
Modified Vincent Score (MRS)
-
Modified [place] Scale (mRS): No significant disability. Able to carry out usual activities.
Score: 1
Review of Systems
-
History Source: Patient
Constitutional: No Symptoms
EENT: Other (diplopia)
Respiratory: No Symptoms
Cardiac: No Symptoms
Abdomen/GI: No Symptoms
Genitourinary: No Symptoms
Musculoskeletal: No Symptoms
Skin: No Symptoms
Neuro: Other (confusion)
Endocrine: No Symptoms
Hematologic / Lymphatic: No Symptoms
Physical Exam
-
General: No Apparent Distress and Comfortable
HEENT: Normocephalic, Atraumatic and Anicteric
Neck: Full Range of Motion
Respiratory: No Dyspnea
Cardiac: No JVD
GI: Non-distended
Skin: Unremarkable
Extremities: No Clubbing, No Cyanosis and No Edema
Psych: Anxious
Extended Neurological Exam
Mood & Affect: Anxious
Attention Span & Concentration: Awake, Alert, Interactive, Mild Difficulty with 2 Step Request and Other (difficulty with holidays )
Memory: Vague and Incomplete Historian
Tremor: Intermittent (head tremor) and With Action (tremor to b/l UE with outstretched arms)
Speech: Quality Unremarkable, Quantity Unremarkable and Rate of Production Unremarkable
Cranial Nerve II: Left Eye: Visual Carlos Grossly Intact
Cranial Nerve II: Right Eye: Visual Carlos Grossly Intact
Cranial Nerves III, IV, : Extraocular Movement: Other (left esotropia)
Cranial Nerve VII: Facial Symmetry: Normal Facial Symmetry
Cranial Nerve VIII: Hearing: Unremarkable Hearing to Normal Conversational Volume
Cranial Nerve XI: Shoulder Shrug: Unremarkable
Muscle Strength, Overall: Full Throughout
Pronator Drift: No Drift in Upper Extremities and No Drift in Lower Extremities
Deep Tendon Reflexes: Unremarkable Throughout
Vibration Sensation: Reduced Moderately Distally
Coordination: Vuylnw-bsgr-[id number] Testing Unremarkable, Reaches for Objects without Difficulty and Xgre-Otuy-Mudh movement abnormal (RLE ataxia )
Gait & Station: Romberg Test Positive and Other (toe standinf, heel standing and tandem positive)
Data Reviewed
-
CT Head: Report Reviewed and Image Reviewed
Labs: Report Reviewed
Reviewed with: Physician, Patient and Family
Old Records: Summarized
Medications
-
Home Medications
�Medication �Instructions �Recorded
omeprazole 20 mg tablet,delayed 20 mg PO DAILYPRN PRN gerd 03/07/24
release
sildenafil 25 mg tablet 25 mg PO DAILYPRN PRN ed 03/07/24
amlodipine 5 mg tablet 5 mg PO DAILY #30 tabs 03/08/24
aspirin 81 mg chewable tablet 81 mg PO DAILY #30 tabs 03/08/24
Past History
Past History
ED Past Medical History: GERD, HTN, Hypercholesterolemia and Valvular disease (aortic valve stenosis)
Family/Social History
Personal:
Living: with family

Documented by User: Ladarius Lehman MD 03/11/25 14:47
Neuro Assessment/Plan
Assessment
Patient is a 74-year-old male with history of aortic stenosis, hypertension, hyperlipidemia, TIA (02/2024) who presents to [facility] on 03/11/2024 for evaluation of concerns of double vision and transient confusion.
Head CT 03/11/2025: No acute intracranial abnormality noted. Mild atrophy. Stable
Brain MRI 03/08/2024: Moderate cerebral atrophy along with chronic small vessel ischemia in the cerebral white matter. No acute MR findings in the head
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 Follow-up MRA in 6 months recommended for reevaluation. Otherwise, normal MRA appearance to [place].
MRA neck 03/08/2024:
Short segment of approximately 70% stenosis at the origin of the right vertebral artery
No stenosis exceeding 50% in the internal or external carotid arteries
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 Follow-up MRA head in 6 months recommended for reevaluation.
Labs: TSH 6.24, T4 1.21, Tbili 1.6, BUN 34, LDL pending
Impression:
I. abrupt onset of diplopia with transient episode of confusion likely due to esotropia and hypertensive encephalopathy/TIA?
II. tremor
Plan
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
-goal normotension
-check LDL with goal <70, continue statin therapy
-check blood work for metabolic disturbances
-continue aspirin 81 mg daily
-will need neurology follow up outpatient to evaluate tremor
-follow up with normal dice dealer outpatient
All questions encouraged and answered, plan of care discussed with Dr. Lehman, patient and family
CVA Assessment
NIH Stroke Score
NIH Total Score:: 2
Modified Vincent Score (MRS)
-
Score: 1
[2025-03-11 12:00] VITALS: BP 165/88
[2025-03-11 18:17] LABS: HDL Cholesterol 46 mg/dl; LDL Cholesterol, Calculated 85 mg/dl; Very Low Density Lipoprotein 35 mg/dl (0-30)
[2025-03-11 18:37] LABS: Vitamin B12 356 pg/ml (239-931)
== END 2025-03-11 13:46 | disposition home or self-care (01) ==
LOC: EMR 08:33
PROVIDERS: Physician Assistant; CONSULT PHYSICIAN Psychiatry & Neurology Neurology; EMERGENCY PHYSICIAN Student in an Organized Health Care Education/Training Program; FAMILY PHYSICIAN Physician Assistant
DX: H53.2 Diplopia (principal); I35.0 Nonrheumatic aortic (valve) stenosis; I10 Essential (primary) hypertension; E78.00 Pure hypercholesterolemia, unspecified; I45.10 Unspecified right bundle-branch block; I67.82 Cerebral ischemia; K21.9 Gastro-esophageal reflux disease without esophagitis; Z79.82 Long term (current) use of aspirin; Z86.73 Personal history of transient ischemic attack (TIA), and cerebral infarction without residual deficits
CPT/HCPCS: 99284; 70450; 80053; 80061; 80306; 82077; 82607; 84439; 84443; 84484; 85025; 85610; 85730; 93005

== ENCOUNTER → 2025-03-18 07:01 | Outpatient (REF) | payer MEDICARE, BC, SELFPAY | LOC: PAVMRI 07:01 | PROVIDERS: ATTENDING PHYSICIAN Family Medicine | DX: H53.2 Diplopia (principal); R90.89 Other abnormal findings on diagnostic imaging of central nervous system; I10 Essential (primary) hypertension; H53.40 Unspecified visual field defects | CPT/HCPCS: 70544 ==

== ENCOUNTER 2025-04-10 07:26 | Day surgery (SDC) | payer MEDICARE, BC, SELFPAY ==
[2025-04-10] VITALS (10 sets, daily range): BP systolic 120–156; BP diastolic 75–99; BMI 25.6
[2025-04-10 08:04] LABS: Hematocrit 38.2 % (39.0-52.0); Hemoglobin 13.5 g/dL (13.0-18.0); Mean Corp Hgb Conc. 35.3 g/dL (33.0-37.0); Mean Corpuscular Volume 91.4 fL (80.0-94.0); Platelet Count 220 10^3/uL (130-400); Red Cell Dist. Width 13.0 % (11.5-14.5)
[2025-04-10 09:00] LABS: ALT (SGPT) 40 U/L (0-50); AST (SGOT) 31 U/L (17-59); Albumin 4.3 g/dl (3.5-5.0); Alkaline Phosphatase 47 U/L (38-126); Blood Urea Nitrogen 32 mg/dl (9-20); Calcium 9.6 mg/dl (8.4-10.2); Carbon Dioxide 24 mmol/L (22-30); Chloride 107 mmol/L (98-107); Estimated Creatinine Clearance 48 ml/min; Glucose 100 mg/dl (70-99); Potassium 4.3 mmol/L (3.5-5.1); Sodium 138 mmol/L (135-145); Total Protein 7.7 g/dl (6.3-8.2); eGFR > 60.00
--- NOTE | 2025-04-10 12:18 | ITS.CL.CATH ---
[facility] - Catheterization
Cardiac Catheterization
Procedure Report:
LEFT HEART CATHETERIZATION
Date of Procedure: April 10, 2025
Referring: Cceil Gilmore.
PROCEDURES:
1. Left heart catheterization, coronary angiogram.
2. Moderate sedation.
INDICATION: Severe symptomatic aortic stenosis, being worked up for TAVR vs SAVR
ACCESS: Right radial artery, 6Fr. sheath, under US guidance.
HEMODYNAMICS : (mmHg)
AO (s/d) : 118/75
LVEDP : 12
Mean transaortic gradient of 43 mmHg consistent with severe aortic stenosis.
CORONARY FINDINGS
Dominance: Right
Left Main Trunk (LMT): Large caliber vessel that gives rise to the LAD and LCx branches and is free of angiographic disease.
Left Anterior Descending Artery (LAD): Large caliber vessel that gives off 2 major diagonal branches as it courses along the anterior inter-ventricular groove before wrapping around the cardiac apex. D1 is a small caliber vessel with a 60 to 70%
ostial stenosis. D2 is a small to medium caliber vessel with 40 to 50% ostial stenosis. Mid to distal LAD has 50% stenosis.
Left Circumflex Artery (LCx): Large caliber vessel that gives off 2 major obtuse marginal (OM) branches as it courses along the atrio-ventricular (AV) groove. There is moderate degree of tortuosity and mild diffuse atherosclerotic plaque.
Right Coronary Artery (RCA): Large caliber dominant vessel that gives rise to the posterior descending artery (RPDA) and postero-lateral ventricular (RPLV) branches distally. Ostial RCA has a 80-85% stenosis with ventricularization and pressure
dampening upon engagement with a 5 [place] diagnostic JR4 catheter.
SEDATION: 27 minutes of procedural sedation was utilized. IV Midazolam and IV Fentanyl were administered. An independent medical technologist generalist was present to assist with and help manage the patient's level of consciousness and physiologic status.
RADIATION SUMMARY: Fluoro Time (min): 2.4, Dose (mGy): 281.65, DAP (Gy.cm2) : 16.17
Closure Device: There were no immediate intra-procedural complications. The sheath was pulled in the slab worker and a vascular-band applied to the right wrist for radial artery hemostasis using the patent hemostasis technique.
CONCLUSIONS
1. Ostial RCA has a 80-85% stenosis with ventricularization and pressure dampening upon engagement with a 5 [place] diagnostic JR4 catheter.
RECOMMENDATIONS
1. Wean radial band per protocol. Monitor right hand perfusion and for bleeding from the radial site following removal of the vascular-band following trans-radial access.
2. Continue aggressive medical therapy and risk factor modification for secondary CAD prevention.
3. Continue workup including a CT angio of chest, abdomen and pelvis per TAVR protocol and CT surgery consult with plan to discuss at structural meeting in regards to candidacy for PCI of ostial RCA and TAVR versus SAVR and single-vessel CABG.
Copy to: Cecil Gilmore.
--- NOTE | 2025-04-10 15:02 | CONSULT.STRU ---
Consultation
-
Date/Time Consultation Requested: 04/10/2025 1100
Date/Time Consultation Performed: 04/10/2025 1130
Requesting Provider: Dr. Shanda Iraheta
Performing Provider: TRACEE Gallegos
Reason for Consultation: Aortic stenosis/ TAVR evaluation
Patient History
Physicians
Family Physician: Dasia Jordan
Outpatient Sound Recording Technician: Dr. Mi Olivarez
Primary Sound Recording Technician: Dr. Mi Olivarez
History of Present Illness
Mr Long is a pleasant 74-year-old gentleman with a history of hypertension, dyslipidemia, right bundle branch block and aortic stenosis.� He has no known coronary artery disease or prior myocardial infarct.� He has no history of cardiac
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 Most recently he did note some ADAN when walking up 3 flights of stairs on a cruise and
this was new for him. He denies chest pain, palpitations, dizziness, PND, orthopnea or edema. Overall he remains very active and is looking forward to another trip in early . His most recent echocardiogram on 03/10/2025 was notable for AV
PG?M/52 XIMENA: 0.9, mild AI, mild MR. EF is 66%. Cardiac cath today :Ostial RCA has a 80-85% stenosis.
Reviewed the pathophysiology of aortic stenosis with the patient and his . Explained the treatment options of SAVR and TAVR. Explained the TAVR evaluation process including follow up BMP, CT TAVR scan, CT surgery consult and Heart Team
discussion. Provided with script for BMP next week, script and appointment for CT TAVR, Consult appointment with Dr. Mejia and a copy of the TAVR education booklet with contact information. Allowed for and answered questions.
Past Medical History
Past Medical History: GERD, HTN, Hypercholesterolemia and Other (R-BBB, diplopia (wears left eye patch))
Past Surgical History
Past Surgical History: Other (bilateral cataract surgery, left knee arthroscopy)
Dental History
Dr. Carr Convissar- regular dental check ups. Last seen in November 2024.
Family History
Mother: at Age (80yo)
Father: at Age (80yo)
Social History
Alcohol: Occasional
Drug: None
Tobacco: Non-Smoker
Personal:
Living: With Spouse
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
Allergies
Allergy/AdvReac Type Severity Reaction Status Date / Time
No Known Allergies Allergy Verified 04/10/25 07:44
Home Medications
�Medication �Instructions �Recorded �Confirmed �Type
omeprazole 20 mg tablet,delayed 20 mg PO DAILYPRN PRN gerd 03/07/24 04/10/25 History
release
sildenafil 25 mg tablet 25 mg PO DAILYPRN PRN ed 03/07/24 04/10/25 History
amlodipine 5 mg tablet 5 mg PO DAILY #30 tabs 03/08/24 04/10/25 Rx
aspirin 81 mg chewable tablet 81 mg PO DAILY #30 tabs 03/08/24 04/10/25 Rx
metoprolol succinate 25 mg 25 mg PO DAILY #30 tabs 04/10/25 Rx
tablet,extended release 24 hr
(Toprol XL)
rosuvastatin 40 mg tablet 40 mg PO DAILY #30 tabs 04/10/25 Rx
STS%
STS %: AVR: 1.26% AVR+CAB.51%
Review of Systems
-
History Source: Patient
General: Reports No Symptoms
HEENT: Reports Other (Diplopia)
Respiratory: Reports ADAN (mild); Denies Cough, Asthma or PND
Cardiac: Reports No Symptoms; Denies Chest Pain, Palpitations or Edema
Abdomen/GI: Reports No Symptoms
: Reports No Symptoms
Musculoskeletal: Reports No Symptoms
Skin: Reports No Symptoms
Neurological: Reports No Symptoms
Vascular: Reports No Symptoms
Physical Exam
Vital Signs
Temp 98.0 F 04/10/25 07:49
Temp route: Oral 04/10/25 07:45
Pulse 72 04/10/25 12:00
Resp Rate 18 04/10/25 07:45
Blood pressure 141/75 04/10/25 11:48
Blood pressure extremity used: Right upper arm 04/10/25 07:45
Position: Sitting 04/10/25 07:45
MAP (cuff-Chris Monitor) 97 04/10/25 11:48
SaO2 98 04/10/25 12:00
Oxygen Mode of Delivery Room air 04/10/25 07:45
Can the patient verbally communicate their pain? Yes 04/10/25 07:45
Actual Weight 69.9 kg 04/10/25 07:43
Body Mass Index (BMI) 25.6 04/10/25 07:43
Labs
04/10/25 07:54
04/10/25 08:28
Diagnostic Studies
04/10/2025 Cardiac Catheterization:
HEMODYNAMICS : (mmHg)
AO (s/d) : 118/75
LVEDP : 12
Mean transaortic gradient of 43 mmHg consistent with severe aortic stenosis.
CORONARY FINDINGS
Dominance: Right
Left Main Trunk (LMT): Large caliber vessel that gives rise to the LAD and LCx branches and is free of angiographic disease.
Left Anterior Descending Artery (LAD): Large caliber vessel that gives off 2 major diagonal branches as it courses along the anterior inter-ventricular groove before wrapping around the cardiac apex. D1 is a small caliber vessel with a 60 to 70%
ostial stenosis. D2 is a small to medium caliber vessel with 40 to 50% ostial stenosis. Mid to distal LAD has 50% stenosis.
Left Circumflex Artery (LCx): Large caliber vessel that gives off 2 major obtuse marginal (OM) branches as it courses along the atrio-ventricular (AV) groove. There is moderate degree of tortuosity and mild diffuse atherosclerotic plaque.
Right Coronary Artery (RCA): Large caliber dominant vessel that gives rise to the posterior descending artery (RPDA) and postero-lateral ventricular (RPLV) branches distally. Ostial RCA has a 80-85% stenosis with ventricularization and pressure
dampening upon engagement with a 5 Welsh diagnostic JR4 catheter.
SEDATION: 27 minutes of procedural sedation was utilized. IV Midazolam and IV Fentanyl were administered. An independent medical case manager was present to assist with and help manage the patient's level of consciousness and physiologic status.
RADIATION SUMMARY: Fluoro Time (min): 2.4, Dose (mGy): 281.65, DAP (Gy.cm2) : 16.17
Closure Device: There were no immediate intra-procedural complications. The sheath was pulled in the laborer chicken farm and a vascular-band applied to the right wrist for radial artery hemostasis using the patent hemostasis technique.
CONCLUSIONS
1. Ostial RCA has a 80-85% stenosis with ventricularization and pressure dampening upon engagement with a 5 Welsh diagnostic JR4 catheter.
RECOMMENDATIONS
1. Wean radial band per protocol. Monitor right hand perfusion and for bleeding from the radial site following removal of the vascular-band following trans-radial access.
2. Continue aggressive medical therapy and risk factor modification for secondary CAD prevention.
3. Continue workup including a CT angio of chest, abdomen and pelvis per TAVR protocol and CT surgery consult with plan to discuss at structural meeting in regards to candidacy for PCI of ostial RCA and TAVR versus SAVR and single-vessel CABG.
03/10/2025 Echocardiogram:
SUMMARY
1. Left ventricular ejection fraction is normal with an ejection fraction of 66 % by Ritter's biplane method of discs.
2. Compared to a prior transthoracic echocardiogram study from 08/07/2024 Mean pressure gradient across the aortic valve is increased slightly from 46 mmHg to 53 mmHg. no significant changes are seen.

Transthoracic Echo procedure
A complete Transthoracic Echocardiogram was performed utilizing Two-Dimensional evaluation with color flow and spectral Doppler analysis.
PHYSICIAN INTERPRETATION
Left Ventricle
Left ventricular ejection fraction is normal with an ejection fraction of 66 % by Ritter's biplane method of discs. Left ventricular cavity size is 4.30 cm which is normal. There is no left ventricular hypertrophy. There is global hyperdynamic left
ventricular function; left ventricular systolic ejection fraction is 70-75% by visual assessment. There is a mid-cavity gradient of 4 mmHg which increases to 84 mmHg with Valsalva maneuver.
Right Ventricle:
Right ventricular size and systolic function are within normal limits.
Left Atrium:
Indexed left atrial volume is within normal range (15-34 ml/m2).
Right Atrium:
The right atrium is normal in size and structure.
Interatrial Septum:
The interatrial septum appears normal and intact, with no evidence of interatrial shunting.
Aortic Valve:
Calcified, trileaflet aortic valve with peak and mean gradients of 104 and 53 mmHg, respectively (from the RSB). Estimated XIMENA is 0.7 cm2., using an LVOT of 2.0 cm. Severe aortic stenosis and mild aortic regurgitation.The peak aortic valve gradient
is 103.6 mmHg. The mean aortic valve gradient is 52.0 mmHg. The aortic valve area, calculated by the continuity equation, is 0.93 cm².
Mitral Valve:
There is thickening of the anterior and posterior leaflets of the mitral valve with mild mitral annular calcification and mild mitral regurgitation.
Tricuspid Valve:
Tricuspid valve opens normally with mild tricuspid regurgitation. Estimated pulmonary artery pressure of 35 mmHg assuming a right atrial pressure of 3 mmHg.
Pulmonary Valve:
Mild pulmonary valve regurgitation.
Aorta:
The aortic sinuses are normal with no evidence of dilatation. The ascending aorta is normal in diameter with no evidence of dilatation.
Pericardium:
There is no evidence of pericardial effusion.
Comparison To Previous Study:
Compared to a prior transthoracic echocardiogram study from 08/07/2024 Mean pressure gradient across the aortic valve is increased slightly from 46 mmHg to 53 mmHg. no significant changes are seen.
Exam
General: Well Developed, Well Nourished, No Apparent Distress and Comfortable
HEENT: Normocephalic and Other (patch left eye)
Neck: Trachea Midline
Respiratory: Clear; Negative Wheezes, Crackles or Rhonchi
Cardiac: S1/S2, Regular Rhythm and Murmur (Grade III/)
GI: Non Tender, Non Distended and Normal Bowel Sounds
Rectal: Deferred by Provider
Skin: Warm and Dry
Neuro: AO x 3 and No Motor Deficits
Extremities: Pulses (palpable pedal pulses); Negative Lower Level Edema
Psych: Calm
Assessment / Plan
-
Procedure Type:�Isolated AVR
Perioperative Outcome Estimate %
Operative Mortality 1.26%
Morbidity & Mortality 6.77%
Stroke 1.07%
Renal Failure 1.2%
Reoperation 4.15%
Prolonged Ventilation 2.95%
Deep Sternal Wound Infection 0.035%
Long Hospital Stay (>14 days) 3.05%
Short Hospital Stay (<6 days)* 57.3%
Procedure Type:�CABG + AVR
Perioperative Outcome Estimate %
Operative Mortality 1.51%
Morbidity & Mortality 8.08%
Stroke 1.11%
Renal Failure 1.51%
Reoperation 4.43%
Prolonged Ventilation 4.29%
Deep Sternal Wound Infection 0.065%
Long Hospital Stay (>14 days) 3.62%
Short Hospital Stay (<6 days)* 47.9%
Severe Aortic stenosis:
����������� Continue evaluation for aortic stenosis as outpatient
����������� BMP 04/17/2025
����������� CT TAVR scan 04/25/2025 at
����������� CT surgery consult with Dr. Mejia 05/05/2025
����������� Dental Clearance � Dr. Collins
����������� Heart team discussion at [facility]
Data Reviewed
-
EKG: Report Reviewed by me
County Tax Assessor: Report Reviewed by me and Discussed with Physician
Echo: Report Reviewed by me
Labs: Labs Reviewed by me
Old Records: Reviewed (cardiology notes)
Total Time Spent with Patient (in minutes): 30
== END 2025-04-10 12:34 | disposition home or self-care (01) ==
LOC: CATH 07:26
PROVIDERS: ATTENDING PHYSICIAN Internal Medicine Interventional Cardiology; FAMILY PHYSICIAN Family Medicine; OTHER PHYSICIAN Internal Medicine Cardiovascular Disease
DX: I25.10 Atherosclerotic heart disease of native coronary artery without angina pectoris (principal); E78.00 Pure hypercholesterolemia, unspecified; I08.3 Combined rheumatic disorders of mitral, aortic and tricuspid valves; I10 Essential (primary) hypertension; Z79.899 Other long term (current) drug therapy; Z98.41 Cataract extraction status, right eye; Z98.42 Cataract extraction status, left eye; Z79.82 Long term (current) use of aspirin
CPT/HCPCS: 99152; 99153; 80053; 85027; 93458; C1894; Q9967

== ENCOUNTER → 2025-04-16 09:23 | Outpatient (REF) | payer MEDICARE, BC, SELFPAY | LOC: RAD 09:23 | PROVIDERS: ATTENDING PHYSICIAN Nurse Practitioner Adult Health; FAMILY PHYSICIAN Family Medicine | DX: I35.0 Nonrheumatic aortic (valve) stenosis (principal) | CPT/HCPCS: 74174; 75572; Q9967 ==

== ENCOUNTER 2025-04-30 06:05 | Day surgery (SDC) | payer MEDICARE, BC, SELFPAY ==
[2025-04-30] VITALS (20 sets, daily range): BP systolic 124–152; BP diastolic 66–123; BMI 28.1
[2025-04-30] MEDS: NSS 209 ML IV (07:13)
[2025-04-30] MEDS: PLAVIX 600 MG PO (07:29)
--- NOTE | 2025-04-30 07:35 | PTCARENOTE ---
Pt is here for RCA PCI. Pt ordered plavix 600mg PO per Dr Iraheta. While scanning plavix, drug interaction alerted with omeprazole. Pt's last dose was yesterday. Pharmacy called and stated pt ok to take plavix. Jo Hedrick NP made aware. Will continue
to monitor.
[2025-04-30 08:14] LABS: ACT-LR - POC 287 Seconds (116-155)
[2025-04-30 08:24] LABS: ACT-LR - POC 252 Seconds (116-155)
[2025-04-30 08:32] LABS: ACT-LR - POC 306 Seconds (116-155)
[2025-04-30 08:48] LABS: ACT-LR - POC 324 Seconds (116-155)
[2025-04-30 09:11] LABS: ACT-LR - POC 282 Seconds (116-155)
[2025-04-30] MEDS: NSS 1000 IV (09:25)
--- NOTE | 2025-04-30 09:28 | ITS.CL.CATH ---
[facility] - Catheterization
Cardiac Catheterization
Procedure Report:
CORONARY INTERVENTION
Date of Procedure: April 30, 2025
Referring: Cecil Gilmore.
PROCEDURES:
1. Left heart catheterization to assess invasive LVEDP to help assist post PCI hydration in the setting of baseline CKD.
2. Moderate sedation.
3. IV L shockwave 4.0 mm shockwave balloon.
4. Successful percutaneous coronary artery intervention of a heavily calcified 85% ostial RCA stenosis with one 4.0 x 15 mm Medtronic [place] frontier drug-eluting stent after IV L shockwave, postdilated using IVUS guidance with a 4.0 x 12 mm NC
balloon at high pressures with an excellent angiographic and IVUS based result.
5. Intravascular ultrasound
INDICATION: Severe symptomatic aortic stenosis, being worked up for TAVR vs SAVR with 85% heavily calcified ostial RCA stenosis now presenting after heart team discussion for scheduled PCI prior to transcatheter aortic valve replacement.
ACCESS: Right radial artery, 6Fr. sheath, under US guidance.
HEMODYNAMICS : (mmHg)
AO (s/d) : 110/60
LVEDP : 17
CORONARY FINDINGS
Dominance: Right
Right Coronary Artery (RCA): Large caliber dominant vessel that gives rise to the posterior descending artery (RPDA) and postero-lateral ventricular (RPLV) branches distally. Ostial RCA has a 80-85% stenosis with ventricularization and pressure
dampening upon engagement with a 6 Salvadorean JR4 guide catheter.
CORONARY INTERVENTION:
SEDATION: 67 minutes of procedural sedation was utilized. IV Midazolam and IV Fentanyl were administered. An independent medical manager was present to assist with and help manage the patient's level of consciousness and physiologic status.
RADIATION SUMMARY: Fluoro Time (min): 2.4, Dose (mGy): 281.65, DAP (Gy.cm2) : 16.17
Closure Device: There were no immediate intra-procedural complications. The sheath was pulled in the agricultural labor camp manager and a vascular-band applied to the right wrist for radial artery hemostasis using the patent hemostasis technique.
CONCLUSIONS
1. Successful percutaneous coronary artery intervention of a heavily calcified 85% ostial RCA stenosis with one 4.0 x 15 mm Medtronic [place] frontier drug-eluting stent after IV L shockwave, postdilated using IVUS guidance with a 4.0 x 12 mm NC
balloon at high pressures with an excellent angiographic and IVUS based result.
2. LVEDP of 17 mmHg
RECOMMENDATIONS
1. Wean radial band per protocol. Monitor right hand perfusion and for bleeding from the radial site following removal of the vascular-band following trans-radial access.
2. Continue aggressive medical therapy and risk factor modification for secondary CAD prevention.
3. Continue ASA 81 mg daily for life.
4. Continue Clopidogrel for at least 12 months of uninterrupted dual anti-platelet therapy given drug-eluting stent (ALICIA) implantation to mitigate the risk of stent thrombosis. This is not to be stopped for any reason without the guidance of a
customer service manager.
5. Hydrate with normal saline to mitigate the risk of contrast-induced acute kidney injury.
6. Referral for outpatient cardiac rehab.
7. Proceed in the near future with transcatheter aortic valve replacement for severe symptomatic aortic stenosis.
Shanda Iraheta MD, [facility], [facility]
Copy to: Cecil Gilmore.
--- NOTE | 2025-04-30 13:53 | W.PN.UPDATE ---
Update Note
Progress Note Update
74 yo WM s/p PCI and shockwave to ostial RCA x 1 ALICIA (same day). He denies cp, sob, seferino diet, voiding, EKG SB RBBB, R rad site c/d/i. He will be on DAPT ASA/Plavix. Cardiac rehab c/s. He will continue outpt planning for his TAVR next. Activity
restrictions reviewed. He will f/u Dr. Lopez in 2-4 weeks
== END 2025-04-30 14:07 | disposition home or self-care (01) ==
LOC: CATH 06:05
PROVIDERS: ATTENDING PHYSICIAN Internal Medicine Interventional Cardiology; FAMILY PHYSICIAN Family Medicine; OTHER PHYSICIAN Internal Medicine Cardiovascular Disease
DX: I25.10 Atherosclerotic heart disease of native coronary artery without angina pectoris (principal); I35.0 Nonrheumatic aortic (valve) stenosis; I45.10 Unspecified right bundle-branch block; Z79.02 Long term (current) use of antithrombotics/antiplatelets; Z79.82 Long term (current) use of aspirin
CPT/HCPCS: 92978; 92972; 85347; 93005; 93458; 99152; 99153; C1725; C1753; C1761; C1769; C1874; C1894; C9600; Q9967

== ENCOUNTER 2025-06-12 07:19 | Inpatient (IN) | payer MEDICARE, BC, SELFPAY ==
[2025-06-04 08:22] VITALS: BMI 27.4
--- NOTE | 2025-06-04 08:34 | HPS.HSE ---
Family Physician
-
Family Physician: Dasia Jordan MD
Brick Loader: Mi Olivarez
Chief Complaint
-
Pre-operative H&P for TAVR
History of Present Illness
Mr Long is a pleasant 74-year-old gentleman with a history of hypertension, dyslipidemia, right bundle branch block and aortic stenosis.He had no known coronary artery disease or prior myocardial infarct. He has no history of cardiac
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 He walks daily 3 to 5 miles, plays pickle ball and rides his bike without symptoms. Most recently he did note some ADAN when walking up 3 flights of stairs on a cruise and
this was new for him. He denies chest pain, palpitations, dizziness, PND, orthopnea or edema. Overall he remains very active and is looking forward to another trip in early June. His most recent echocardiogram on 03/10/2025 was notable for AV
PG?M/52 XIMENA: 0.9, mild AI, mild MR. EF is 66%. Cardiac cath 04/10/2025 :Ostial RCA has a 80-85% stenosis. On 04/30/2025he returned to the director of cardiac cath lab and underwent successful percutaneous coronary artery intervention of a heavily calcified 85%
ostial RCA stenosis with one 4.0 x 15 mm Medtronic [place] frontier drug-eluting stent after IV L shockwave, postdilated using IVUS guidance with a 4.0 x 12 mm NC balloon at high pressures with an excellent angiographic and IVUS based result. He
presents today for pre-admisison testing in preparation for TAVR on 06/12.
Medical History
Past Medical History
Past Medical History: Reports CAD, HTN, Hypercholesterolemia, Valvular Disease (Severe Aortic Stenosis, Mild AI, Mild MR, Mild TR) and Other (R-BBB)
Past Surgical History: Reports Orthopedic (knee arthroscopy) and Other (04/30/2025 PCI of RCA-stent placement, cataract surgery)
Social History
Tobacco: Non-smoker
Alcohol: Occasional
Drug: None
Personal:
Living: With Family
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
Family History
Family History: Not pertinent
Allergies / Home Medications
Allergies reflects when Allergies were last updated in [facility].
Home Medications with original date entered in [facility]
Allergy/Medication List:
Allergies:
NKDA
Medications:
amLODIPine Besylate 5 MG Tablet 1 tablet Orally Once a day.
Aspirin 81(Aspirin) 81 MG Tablet Chewable 1 tablet Orally Once a day.
Metoprolol Succinate ER 25 MG Tablet Extended Release 24 Hour 1 tablet Orally Once a day.
Plavix(Clopidogrel Bisulfate) 75 MG Tablet 1 tablet Orally Once a day.
PriLOSEC OTC(Omeprazole Magnesium) 20 MG Tablet Delayed Release 1 tablet 1/2 to 1 hour before morning meal Orally Once a day As needed
Rosuvastatin Calcium 40 MG Tablet 1 tablet Orally Once a day.
Sildenafil Citrate 25 MG Tablet 1 tablet as needed Orally Once a day ,PRN.
Tamsulosin HCl 0.4 MG Capsule 1 capsule Orally Once a day.
Review of Systems
-
History Source: Patient
Constitutional: Reports No Symptoms
EENT: Reports No Symptoms
Respiratory: Reports No Symptoms
Cardiac: Reports No Symptoms; Denies Chest Pain, Palpitations or Syncope
Abdomen/GI: Reports No Symptoms; Denies Abdominal Pain, Nausea or Vomiting
: Reports No Symptoms; Denies Dysuria
Musculoskeletal: Reports No Symptoms
Skin: Reports No Symptoms
Neurological: Reports No Symptoms; Denies Dizzy or Weakness
Endocrine: Reports No Symptoms
Hematologic/Lymphatic: Reports No Symptoms
Psych: Reports No Symptoms and Calm
Physical Exam
Physical Exam
General: Well Developed, Well Nourished, No Apparent Distress and Comfortable
HEENT: NormoCephalic, Atraumatic and PERRLA
Respiratory: Clear; No Wheezes, Rales or Rhonchi
Cardiac: S1/S2, Regular Rhythm and Murmur (Grade III/ MILVIA)
Breast: Deferred by me
GI: Soft, Non Tender, Non Distended and Normal Bowel Sounds
Rectal: Deferred by Provider
Genito-urinary: Deferred by me
Musculoskeletal: No Clubbing, No Cyanosis and No Edema
Skin: Warm and Dry
Neuro: AO x 3 and Nonfocal/grossly intact
Psych: Calm and Intact Judgment/Insight
Data Reviewed
-
Diagnostic Radiology: Report Reviewed by me (Chest x-ray- no acute process)
CT Scan: Report Reviewed by me and Discussed with Physician (CT TAVR scan- 26mmS3 valve)
Medical Tests (Nuc Med, Echo, EKG etc): Report Reviewed by me and Discussed with Patient (R-BBB, reviewed PPM risk )
Lab Data: Labs Reviewed by me
Old Records: Reviewed
Impression/Plan
-
IMPRESSION:
Severe Aortic Stenosis
PLAN:
-Proceed with TF TAVR utilizing a 26mm S3 valve
-Post op day #1/#30 echocardiogram
-Continue ASA/Plavix daily (new cardiac stent)
-Cardiac rehab consult
-Lifetime prophylactic antibiotic prior to dental procedures
Laboratory Results
-
Laboratory Data
06/04/25 08:32
06/04/25 08:32
PT 14.2 Sec (11.4-14.6) 06/04/25 08:32
INR 1.05 06/04/25 08:32
Total Bilirubin 2.0 mg/dl (0.2-1.3) H 06/04/25 08:32
Direct Bilirubin 0.3 mg/dl (0.0-0.4) 06/04/25 08:32
AST 35 U/L (17-59) 06/04/25 08:32
ALT 39 U/L (0-50) 06/04/25 08:32
Alkaline Phosphatase 51 U/L (38-126) 06/04/25 08:32
Total Protein 8.3 g/dl (6.3-8.2) H 06/04/25 08:32
Albumin 4.8 g/dl (3.5-5.0) 06/04/25 08:32
[2025-06-04 09:02] LABS: Urine Character Clear (Clear)
[2025-06-04 09:07] LABS: Hematocrit 35.8 % (39.0-52.0); Hemoglobin 12.8 g/dL (13.0-18.0); Mean Corp Hgb Conc. 35.8 g/dL (33.0-37.0); Mean Corpuscular Volume 90.9 fL (80.0-94.0); Nucleated Red Blood Cells % 0 % (-); Platelet Count 170 10^3/uL (130-400); Red Cell Dist. Width 12.1 % (11.5-14.5)
[2025-06-04 09:14] LABS: INR 1.05; PT 14.2 Sec (11.4-14.6)
[2025-06-04 09:39] LABS: Urine Red Blood Cell 0-2 /HPF (0-2); Urine White Cell 0-2 /HPF (0-5)
[2025-06-04 09:56] LABS: ALT (SGPT) 39 U/L (0-50); AST (SGOT) 35 U/L (17-59); Albumin 4.8 g/dl (3.5-5.0); Alkaline Phosphatase 51 U/L (38-126); Blood Urea Nitrogen 27 mg/dl (9-20); Calcium 9.7 mg/dl (8.4-10.2); Carbon Dioxide 25 mmol/L (22-30); Chloride 102 mmol/L (98-107); Estimated Creatinine Clearance 42 ml/min; Glucose 96 mg/dl (70-99); Potassium 4.6 mmol/L (3.5-5.1); Sodium 137 mmol/L (135-145); Total Protein 8.3 g/dl (6.3-8.2); eGFR 58.01
--- NOTE | 2025-06-04 10:05 | CM ---
Met with Mr. Long in [facility]'s. He states prior to admission he resides with his spouse in a two three story home with two steps to enter. He states he is in a [facility] plus senior living community [facility] .He states he has been there for two years. He
states he has a first floor set-up. His main bedroom/full bathroom are on the first floor. He states prior to admission he was independent with ambulation and adls. He states he does not have any DME in the home. He thinks he has a prescription
plan nad uses [facility]. He states his spouse will be home over the weekend to assist in his care if needed. The discharge plan is to return home with his spouse and a home visit by the Transitional Care Nurse when medically stable.
We reviewed pre-op and post-op routines. We reviewed the shower instructions. He has the soap, written instructions and the TAVR Educational Booklet. We also reviewed the restrictions including lifting and driving restrictions. We discussed the
home visit by the Transitional Care Nurse. He is agreeable to a home visit. The plan is for TAVR on May.
[2025-06-04 10:38] LABS: Glycohemoglobin (HgbA1c) 5.3 % (4.0-5.9)
[2025-06-12] VITALS (20 sets, daily range): BP systolic 87–152; BP diastolic 53–86; BMI 26.3
--- NOTE | 2025-06-12 08:49 | W.CVOR.SURPR ---
CVOR Surgeon Immed Pre Op
-
I have examined this patient prior to performance of the scheduled procedure.
The patient's condition is unchanged from the time of the dictated/written History and
Physical and the patient is able to undergo the scheduled procedure.
TF TAVR, Full Rescue
--- NOTE | 2025-06-12 09:18 | ITS.CL.TAVR ---
Development Specialist - TAVR Report
TAVR PRocedure
Procedure Report:
TRANSCATHETER AORTIC VALVE REPLACEMENT
Date of Procedure: June 12, 2024
Referring: Cecil Gilmore
Operators: Drs. Shanda rIaheta and Reginald Mejia
PROCEDURE PERFORMED:
1. Successful placement of 26 mm Tabor Ifrah S3 aortic valve via right common femoral approach.
2. Ultrasound-guided access.
3. Bilateral femoral angiography.
ACCESS:
1. Left common femoral artery, 6 Polish sheath, under ultrasound guidance using a micropuncture kit.
2. Left common femoral vein, 6 Polish sheath, under ultrasound guidance using a micropuncture kit.
3. Right common femoral artery, 8 Polish sheath, under ultrasound guidance using a micropuncture kit.
Ultrasound was utilized for vascular access. The right and left femoral artery and vein were visualized under ultrasound, and the vessels was patent and arteries were pulsatile. An image was stored permanently in the patient's medical record.
Under direct ultrasound guidance, a 6 Polish sheaths was inserted into the right common femoral artery and vein, and an 8 Polish sheath in the left common femoral artery, respectively, using a micropuncture kit through a modified Seldinger technique.
PREPROCEDURE NYHA CLASS: II
DESCRIPTION OF PROCEDURE: The patient was referred for assessment of severe symptomatic aortic stenosis and following a comprehensive evaluation it was felt that transcatheter aortic valve replacement (TAVR) would be the most appropriate treatment.
Informed consent was obtained prior to the procedure. A 'time-out' was called and the procedural plan was verbally confirmed by anesthesia, surgery, perfusion, and photo lab technician staff.
Arterial and venous access site were obtained in the left common femoral artery and vein using ultrasound guidance and micropuncture technique. 6 Fr. sheaths were inserted.
A 5 Fr. transvenous pacing wire was advanced to the right ventricle where excellent pacing thresholds were obtained.
A 5 Fr. pigtail catheter was then advanced to the proximal ascending aorta / right aortic cusp where angiography was performed in multiple angles to define the co-planar angle that was most appropriate valve deployment.
Ultrasound guidance was then used to obtain arterial access in the right common femoral artery and a 4 Fr. micropuncture sheath was inserted. Angiography was performed and the arteriotomy site appeared appropriate for preclosure with two Perclose
devices. An 8 Fr sheath was then inserted back into the common femoral artery over a J-tipped guidewire. An AL1 catheter was positioned in the proximal descending aorta. An Extra Stiff 0.035' J-tip wire was inserted to provide extra-support to
facilitate the Tabor eSheath delivery. The 16 Fr. Tabor eSheath was successfully advanced in the descending thoracic aorta.
An AL1 catheter was advanced through the Tabor eSheath over a 0.035' J-tip guide wire. The AL1 catheter was positioned just above the aortic valve. A 0.035' Straight tip wire probed the aortic valve and crossed the stenotic leaflets. The AL1
was then advanced to the mid left ventricle. Estimated LV end-diastolic pressure invasively was 25mmHG. An Amplatz Extra-stiff wire with a generous curved tip was then positioned in the left ventricular apex. A 26 mm Tabor Ifrah S3 valve was
brought to the table and the orientation of the valve on the balloon delivery system was confirmed by all operators. The Ifrah S3 valve was advanced through the eSheath and into the proximal descending thoracic aorta. The Ifrah S3 valve was
centered on the delivery balloon and the entire system was retroflexed as it crossed the aortic arch. The Ifrah S3 delivery system was then advanced across the stenotic valve and the 26mm Ifrah S3 valve was deployed during rapid pacing. The
valve deployment was uneventful. Transthoracic echocardiographic images post valve deployment revealed minimal aortic insufficiency with excellent position of the aortic prosthesis.
The Tabor balloon and delivery system were then removed. The Tabor sheath was removed and the Perclose knots were advanced to the arteriotomy site resulting in excellent hemostasis.
Femoral angiography: Femoral arteriotomy bilaterally is noted to be above the bifurcation and below the inferior epigastric artery. There is minimal luminal irregularities in the visualized external iliac and femoral vessels.
CONCLUSIONS:
1. Severe symptomatic aortic stenosis. Successful deployment of a 26 mm Ifrah S3 valve with minimal aortic insufficiency post procedure
2. Successful arteriotomy closure with 2 Perclose devices.
3. Acute on chronic diastolic heart failure with LVEDP of 25mmHG
Shanda Iraheta MD, FACC, [facility]
Copy to: Dr. Mi Olivarez and Dasia Glaser
[2025-06-12] MEDS: ANCEF 10 IV (10:20)
[2025-06-12 10:52] LABS: ACT-LR - POC 363 Seconds (116-155)
--- NOTE | 2025-06-12 11:08 | W.PN.CT.SURG ---
CT Surgery Operative Note
-
OPERATIVE REPORT
Preoperative Diagnosis: Severe aortic valve stenosis, symptomatic
Postoperative Diagnosis: Same
Procedure(s) Performed: Right trans femoral TAVR with a 26 mm nominal Tabor TAVR valve
Date of Procedure: 02/09/2025
Comorbidities:
1. Severe aortic stenosis, symptomatic
2. Coronary artery disease status post stenting
3. Hypertension
4. Hyperlipidemia
5. Acute on chronic ingestive heart failure with elevated LVEDP pre-TAVR
Cardiac Surgeon: Reginald Mejia MD, MS
Respite Worker: Shanda Iraheta MD
Anesthesia: Conscious Sedation and Local Analgesia
EBL: 100cc
Products: none
Implant: 26 mm nominal Tabor VERNON Resilia TAVR valve, SN: [id number]
Indication(s) for Procedures: 74-year-old male with symptomatic severe aortic stenosis with coronary artery disease status post stenting and PCI to the RCA. CT-TAVR protocol revealed acceptable anatomy for TAVR access and implantation.
Start time: 1024hrs
Deployment time: 1052hrs
End time: 1102hrs
Radiation Dose (mGy): 307.42
DAP (cm2.Gy): 29.9962
Fluoroscopy time (minutes): 8.3
Contrast volume (ml): 85
TAVR gradient (mmHg): 5mmHg
Heparin Dose: 6000units
Protamine Dose: 40mg
Final Valve Positionin/10
LVEPD: 25mmHg
Findings: Preoperative LVEF was 65% and was 70% following TAVR without inotropic support. Function was overall normal without regional wall motion abnormalities or dyskinesia. The aortic valve was well seated without detectable PVL and mean gradient
across the new valve was 5mmHg. after deployment of the valve, he do not require additional pacing and returned to sinus while on the production laborer table. There was successful placement of 26 mm nominal TAVR valve without acute complications.
Access:
1. Device -right common femoral artery, perclose x 2
2. Pigtail -left common femoral artery [+ 6Fr angioseal]
3. Transvenous Pacer -left common femoral vein
Description of Procedure: The patient was taken to the production laborer. Their identity and procedure to be performed were verified and they were positioned supine on the production laborer table. Induction via conscious sedation. The patient was then prepped and
draped from chin to thigh in a sterile fashion. A preoperative time-out was performed with all members of the team present. Arterial and venous access was performed using fluoroscopy and ultrasound guidance with micropuncture and Seldinger
technique. Two perclose devices were used on the device side followed by access to the aorta with a stiff wire to facilitate E-sheath placement. Heparin was given. A stiff straight wire and AL-1 catheter was used to cross the aortic valve. An LVEDP
was measured. The stiff wire was exchanged for an extra stiff coiled tip wire. The valve was prepped and mounted on to the device carrier. An ACT of >250 was achieved. We verified x 3 that the valve was mounted in the correct orientation with the
skirt of the valve directed toward the tip of the device carrier. We advanced the device into the descending thoracic aorta where the valve was them mounted onto the balloon under fluoroscopy. The device was flexed and advanced over the arch into
the root and positioned across the aortic valve. Contrast fluoroscopy was used to visualize the prosthesis across the valve and to guide positioning. A pigtail catheter in the RCC as used as a guide. We aimed to have the bottom of the device marker
at the annular hinge point. The device sheath was pulled back. We performed a quick pre-deployment time out. The pacer was turned on and had capture. Blood pressure fell accordingly, angiography was done to verify the intended final placement and
the valve was deployed with 5 seconds of rapid pacing to nominal volume. The balloon was deflated and the pacer was turned off. We had recovery of vitals. The device carrier was unflexed and positioned back in the descending thoracic aorta. A
transthoracic echocardiogram was performed. The device was removed from the E-Sheath maintaining wire access followed by removal of the E-sheath as we cinched down the perclose devices. There was acceptable hemostasis. The pigtail was withdrawn into
the descending/abdominal and completion aortogram with runoff run-off angiography was performed. There was no stenosis or dissection of bilateral iliofemoral systems. There was acceptable hemostasis of bilateral groins and manual pressure was held
following wire removal. Low dose protamine was administered after checking another ACT.
All instrument, sponge, and needle counts were confirmed to be correct x 2 at the end of the operation. The patient was transferred to the cardiac intensive care unit in stable condition.
I, Dr. Reginald Mejia, was present, scrubbed for, and performed all critical elements of this procedure.
Reginald Mejia MD
Cardiothoracic Surgeon
[facility]
This operative dictation was created using the [employer] dictation system. Please excuse any grammatical, typographical, or 'sound alike' errors
[2025-06-12] MEDS: LEVOPHED 250 IV (11:27)
[2025-06-12] MEDS: LASIX 20 MG IV (12:12)
[2025-06-12] MEDS: KCL 10 MEQ PO (12:26)
--- NOTE | 2025-06-12 12:54 | CM ---
Chart reviewed. Patient is in the OR today. Patient is independent of ADLS, lives [facility], 2 STH, 1st floor set up, 2 NATY, 0 DME. Plan is for the patient to return home with CT Transitional RN. CM to follow
[2025-06-12] MEDS: ANCEF IV (15:29)
[2025-06-12] MEDS: ANCEF 5 IV (16:34)
[2025-06-12] MEDS: CRESTOR 40 MG PO (17:35)
--- NOTE | 2025-06-12 17:42 | PTCARENOTE ---
Pt received from recovery area post TAVR. Small amount of oozing from right femoral artery site, dressing changed, hemostasis pad placed over puncture site, no sign of hematoma. Left femoral site with dry and intact dressing, no sign of bleeding or
hematoma. Pt denied any discomfort. Pt with occasionally closed right eye, he reports double vision intermittently for 3 months. Neuro assessment unremarkable. Pt OOB per protocol, transient lightheadedness walking in henry with RN using a walker
which resolved in a minute. Telemetry shows sinus rhythm with first degree AV block and RBBB. Levo initially at 2mcg, turned off @15:45.
--- NOTE | 2025-06-12 18:33 | PTCARENOTE ---
Addendum entered by Dorothy Taylor RN 06/12/25 18:49:
Accucheck 151
Original Note:
Pt seen by RN at 18:15, he interacted normally. At 18:20 pts arrived and came to find RN stating he wasn't behaving normally. Pt slow to speak and find words, not oriented to date or his reason for being in the hospital. Neuro assessment
otherwise unchanged. BP 123/77, 96% on room air, sinus rhythm @60's. Yaneth Sifuentes, PATRICK notified and came to assess pt. Plan to check ABG, monitor very closely. Pt's states he has had a similar episode a few months ago.
--- NOTE | 2025-06-12 18:41 | W.PN.UPDATE ---
Update Note
Progress Note Update
Called by RN to evaluate patient for reported new onset confusion. reports patient does not remember eating dinner. Patient unable to state year or month stating I do not know. Patient otherwise conversing normally and able to repeat the
phrase 'no ifts, and's, or buts.' Patient with left eye esotropia which predates procedure by 3 months. Work-up for this was negative.Otherwise, neuro exam intact with +5/5 B/L UE/LE strength. BP 123/77 (90); HR 76 (SR), SPO2 94% R/A. Dr. Mejia
notified and willobtain ABG. No CT unless develops focal deficit. Pedro heller his updated to plan.
[2025-06-12 18:49] LABS: Glucose - Point of Care 151 mg/dl (70-99)
[2025-06-12 19:21] LABS: B.E. 1.8 mmol/L; HCO3 25.7 mmol/L (21-28); O2 Saturation % 98.2 % (94-98); PCO2 37 mmHg (35-48); PO2 89 mmHg (83-108)
[2025-06-12] MEDS: MAALOX 30 ML PO (21:27)
[2025-06-12] MEDS: FLOMAX 0.4 MG PO (21:27)
[2025-06-13 03:25] VITALS: BP 121/74
[2025-06-13 03:38] LABS: Glucose - Point of Care 116 mg/dl (70-99)
[2025-06-13 03:40] VITALS: BP 116/82
[2025-06-13 04:02] LABS: Hematocrit 33.9 % (39.0-52.0); Hemoglobin 12.1 g/dL (13.0-18.0); Mean Corp Hgb Conc. 35.7 g/dL (33.0-37.0); Mean Corpuscular Volume 89.9 fL (80.0-94.0); Platelet Count 141 10^3/uL (130-400); Red Cell Dist. Width 12.1 % (11.5-14.5)
[2025-06-13 04:14] VITALS: BMI 26.3
[2025-06-13 04:25] LABS: Blood Urea Nitrogen 27 mg/dl (9-20); Calcium 9.2 mg/dl (8.4-10.2); Carbon Dioxide 24 mmol/L (22-30); Chloride 102 mmol/L (98-107); Estimated Creatinine Clearance 50 ml/min; Glucose 104 mg/dl (70-99); Potassium 4.1 mmol/L (3.5-5.1); Sodium 133 mmol/L (135-145); eGFR > 60.00
--- NOTE | 2025-06-13 05:58 | PTCARENOTE ---
Addendum entered by Eleni Ramos RN 06/13/25 06:01:
Pt awake this morning at 0325, aaox3, able to answers all questions correctly, neuro assessment WNL, VSS. Within a few minutes, when CT PA walked in to assess pt and asked orientation questions, pt was completely disoriented and unable to answer.
Staring blankly and voicing random words. BP 116/82, 64, T98.4, Pox 96% RA. blood sugar 116. Pt back to his baseline within 4-5min, oriented, but unable to recall what happened. Call iraheta within reach, pt advised to call for assistance.
Original Note:
Assumed care on pt at change of shift, aaox3, able to make needs known. Oriented to place and situation, needed time to think when was asked about day/time, however able to answer correct. Eyes reactive to light and equally bilaterally, strength
and sensation same b/l. Groins with CDI dressing, no hematoma or bleeding. Pt denied pain or SOB, SR w/ BBB on tele monitor, HR 60's. Pox 98% RA. BP stable. Voiding clear yellow urine at bedside urinal, voices no complaints. POC ongoing, call iraheta
within reach.
--- NOTE | 2025-06-13 07:11 | W.PN.ANS.POP ---
Anesthesia Post Operative
- Anesthesia Post Op Note
Vital Signs Stable-See Nursing Note: Yes
Airway Patent: Yes
Adequate Pain Control: Yes
Change in Mental Status: No
Current Postoperative Nausea & Vomiting: No
Anesthesia Complications: No
General Anesthetic Recall: No
Unplanned Admission: No
Post Op Hydration Adequate: Yes
[2025-06-13 08:13] VITALS: BP 143/80
--- NOTE | 2025-06-13 08:30 | W.PN.CT ---
Today's Communication / Plan
-
-pod #1
-intermittent brief episodes of confusion x2 - resolved without intervention. No hypoglycemia or hypotension. No bradycardia, pauses or arrhythmia. All symptoms resolved and there were no residual neuro deficits. Reviewed with Dr Mejia - continue to
monitor
-got iv Lasix 06/12. UO 1520 +
-old RBBB. ECG am without change
-Echo today
-ambulate
-possible d/c
Assessment / Plan
-
- Severe symptomatic aortic valve stenosis- s/p Right trans femoral TAVR with a 26 mm nominal Tabor TAVR valve on 06/12/25, pod #1
- Intraop TTE: Preoperative LVEF was 65% and was 70% following TAVR without inotropic support. Function was overall normal without regional wall motion abnormalities or dyskinesia. The aortic valve was well seated without detectable PVL and mean
gradient across the new valve was 5mmHg.
- Coronary artery disease, status post stenting
- Hypertension
- Hyperlipidemia
- Acute on chronic ingestive heart failure with elevated LVEDP pre-TAVR
- Pre-existing RBBB
Discussed patient care with: Nursing and Care Team
Subjective
-
Date of Service: June 13, 2025
Objective Data
-
Lab Results
06/13/25 03:31
06/13/25 03:31
PT 14.2 Sec (11.4-14.6) 06/04/25 08:32
INR 1.05 06/04/25 08:32
Vital Signs
Vital Signs
Temp Pulse Resp BP Pulse Ox
98.4 F 71 20 116/82 95
06/13/25 03:26 06/13/25 07:45 06/13/25 03:26 06/13/25 03:40 06/13/25 03:26
CT Intake/Output/Weight
1106/13/25 06/13/25
18:59 06:59 18:59
Intake Total 1660 / 1900 240 / 1900
Output Total 1350 / 1520 170 / 1520
Balance 310 / 380 70 / 380
SaO2: 95
Physical Exam
-
General: Awake and AOx3
Cardiovascular: Regular rate & rhythm, No Murmurs and No Rub
Respiratory: Clear and Decreased Breath Sounds
Sternum: Stable
Incision: Clean (groin incisions are cdi, soft, nontender, no hematoma b/l)
Extremities: No Edema
Data Reviewed
-
Lab Results: Results Reviewed
Medications: Active Meds Reviewed
Chest X-Ray: Report Reviewed and Image Reviewed
ECG: Report Reviewed and Image Reviewed
[2025-06-13] MEDS: TOPROL XL 25 MG PO (08:34)
[2025-06-13] MEDS: ASPIR LOW (ENTERIC COATED) 81 MG PO (08:34)
[2025-06-13] MEDS: PLAVIX 75 MG PO (08:34)
--- NOTE | 2025-06-13 10:33 | W.DCSUMMARY ---
Discharge Summary
Discharge Data
Date of Admission: 06/12/25
Date of Discharge: 06/13/25
-
Pending Results: No
Hospital Course
Primary care physician: Dasia Jordan
Outpatient roustabout: Mi Olivarez
Inpatient consultants: [facility]
Procedures:
1. TAVR
Primary Diagnosis:
1. severe aortic stenosis
Secondary Diagnoses:
1. Coronary artery disease, status post stenting
2. Hypertension
3. Hyperlipidemia
4. Acute on chronic ingestive heart failure with elevated LVEDP 25 pre-TAVR
5. Pre-existing RBBB
- acute postop mental status change- transient confusion
HPI: 74 year old Male was electively admitted on 06/12/2025 for TAVR due to severe aortic stenosis
Hospital course: Patient was taken to the [facility] and underwent a right transfemoral TAVR #26 mm normal Tabor valve by Drs. Reginald Mejia and Shanda Iraheta. Postprocedure ECG reported sinus bradycardia in the 50s unchanged from preop ECG. Patient
required Levophed in the recovery for expected transient hypotension which was quickly weaned off. Patient received 20 mg of IV Lasix postoperatively for LVEDP of 25. Evaluated patient approximately 1800 mL per RN for new onset confusion. Patient
was nn-focal but was unable to state correct date, year, reason for admission. reports similar episode a few years ago diabetes related to hypertension. Current BP 120/70, heart rate 74 and sinus, pulse ox 95% on room air, blood sugar within
normal limits. Dr. Mejia notified of change in mental status with nonfocal findings. Patient back to baseline with repeat assessment within 10 minutes of event. No CAT scan was deemed necessary. ABG was within normal limits without CO2 retention.
Patient experienced brief similar event in the etcher printed circuit boards of 06/13/2025 with symptoms resolving within minutes. No focal changes noted and no neuroimaging was warranted. ECG with sinus rhythm right bundle branch block unchanged. CXR without
acute pulmonary abnormality. Pre discharge TTE reported an EF of 63%, AV gradient 14/8 mmHg, no AI, mild MR/TR, and no pericardial effusion. Labs on day of discharge: Hemoglobin 10.9, WBC 9.1, platelet 119K, potassium 3.8, creatinine 1.0. Patient
remained stable in the afternoon and was deemed stable for discharge home.
Home medication changes:
None
Discharge Plan
-
Patient Disposition: Home (Routine Discharge)
Discharge Diagnosis/Procedures: Right Transfemoral TAVR (#26 mm Tabor) with Dr. Reginald Mejia & Dr. Shanda Iraheta on 06/12/25
Condition: Good
Diet: Low Fat, Low Cholesterol and 2 Gram Sodium
Activity: As tolerated
Driving Restrictions: No driving for 1 week
Bathing Restrictions: OK to Shower
Others Tests: Follow up echocardiogram has been scheduled for you at [facility] on 07/15/2025 at 2:00pm.
Other Services: Cardiac Rehab
Wound Care: Please do not apply lotions, creams or powders to groin areas.
Please monitor for increased pain, redness, swelling or drainage.
Notify your doctor if any occur.
No soaking in water (tub, hot tub, pool, ect.) for 1-week, or until procedural sites heal.
Specialty Instructions: Weigh Daily- Call MD for wt gain/loss 3 lbs overnight/5 lbs in 1 week
Referrals:
CT Transitional Care Nurse [Outside]
Referral Note: The Cardiothoracic Transitional Care Nurse will call you to set up a visit in 1-2 days.
[facility]. Cardiac Rehab [Outside] - 08/06/25 9:30 am
Referral Note: Cardiac Rehab Orientation appointment is on 08/06/24 0930am�
The Cardiac Rehab gym is located on the first floor of the [facility].
Haylie Meade CRNP [Specified Professional Personl, Cardiology] - 07/14/25 10:00 am
Referral Note: You have a cardiology follow-up appointment at the [facility] office. Please call with questions
Dasia Jordan MD [Family Provider, Family Practice]
Prescriptions:
Continued
sildenafil 25 mg tablet
25 mg PO DAILYPRN PRN (Reason: ED)
omeprazole 20 mg Tablet,Delayed Release (Dr/Ec)
20 mg PO DAILYPRN PRN (Reason: GERD)
clopidogrel 75 mg tablet
75 mg PO DAILY Qty: 90 10RF
tamsulosin 0.4 mg Capsule
0.4 mg PO HS Qty: 0 0RF
aspirin 81 mg Tablet
81 mg PO DAILY Qty: 0 0RF
metoprolol succinate [Toprol XL] 25 mg tablet extended release 24 hr
25 mg PO DAILY Qty: 30 5RF
rosuvastatin 40 mg tablet
40 mg PO DAILY Qty: 30 5RF
amlodipine 5 mg Tablet
5 mg PO DAILY Qty: 30 0RF
Discharge Orders:
Discharge Patient (As Directed); Ordered 06/13/25
Ordered By: Yaneth Sifuentes
Care Plan Goals
Care Plan Goals:
Problem: Readiness for enhanced knowledge related to diagnosis and treatment plan
Goal: Understand your diagnosis and treatment plan needs, including medications if applicable.
Instructions: Know your diagnosis, underlying causes and treatment plan options, including medications if applicable. Consult with your health care team to learn about your diagnosis and treatment plan, including medications if applicable.
Discharge Date and Time
Print Language: KINYARWANDA
--- NOTE | 2025-06-13 10:45 | CM ---
Chart reviewed. Patient's at bedside. Patient is independent of ADLS, lives with his in a [facility], 2 STH, 1st level set up, 2 NATY, 0 DME. Plan is for the patient to return home with CT Transitional RN. CM to follow.
[2025-06-13 11:01] VITALS: BP 144/74
[2025-06-13] MEDS: NORVASC 5 MG PO (11:08)
[2025-06-13 11:25] VITALS: BP 138/70; BP 144/74; PULSE 88; O2SAT 95; O2SAT 96
--- NOTE | 2025-06-13 11:31 | W.PN.CARDCBS ---
Addendum entered and electronically signed by Mi Olivarez DO 06/13/25 13:24:
I saw and examined the patient.
The Facilities Manager's note was reviewed and I agree with the note.
Comment: Seen and examined with at bedside. Overall feels well today and ambulated with nursing around unit without symptoms. Overnight nursing and his report 2 episodes of confusion without focal deficits; chart reviewed. Patient has
no recurrent symptoms at present.
General: No acute distress, AAOX3
Neck: Negative JVD
Heart: Regular, positive S1/S2, No murmur
Lungs: CTA b/l, negative wheezes/rales/rhonchi
Abd: Positive BS, NT/ND, neg rebound/rigidity/guarding
Ext:no edema
Neuro: nonfocal
Plan:
- Patient underwent right transfemoral TAVR 06/12/2025
-2 episodes of confusion overnight without focal deficits since resolved. Unclear etiology. Will monitor for recurrence.
- Patient with chronic right bundle branch block. No rhythm issues noted on review of telemetry overnight
- Continue aspirin, Plavix
- Status post dose of IV Lasix 06/12
-2D echocardiogram this morning with normal EF, 63% and stable TAVR with no aortic regurgitation. Mean transaortic gradient 8 mmHg.
- Outpatient cardiac follow-up arranged
- Discussed with nursing, CT surg IMMIGRATION ASSOCIATE
Original Note:
Today's Communication / Plan
-
Follow mental status
Echo pending
Continue aspirin, Plavix
Plan for DC later today
Impression / Plan
-
Primary Research Director: Dr. Olivarez
Assessment:
Symptomatic aortic stenosis status post right transfemoral 26mm Tabor TAVR valve 06/12/25
Transient nonfocal confusion x2 overnight, resolved
CAD s/p RCA PCI 04/30/2025 with residual ostial D1 stenosis, ostial D2 stenosis, mid to distal LAD stenosis
Chronic right bundle branch block
HTN
HLD
ECHO 06/12/25: EF 60 to 65%, status post TAVR with peak/mean gradients 11/5 mmHg, no AR, no pericardial effusion
ECHO 06/13/25: pending
Plan:
- Patient underwent right transfemoral TAVR 06/12/2025
- Overnight had 2 transient episodes of confusion, no focal deficits noted. ABG was okay as well as blood pressure and blood sugar at that time. Subsequently resolved. Patient felt to be presently at be at baseline mental status
- Patient with chronic right bundle branch block. No rhythm issues noted on review of telemetry overnight
- Hemoglobin stable at 12.1. Continue aspirin, Plavix
- Echo pending 06/13
- Status post dose of IV Lasix 06/12
- Ambulate
- Outpatient cardiac follow-up arranged
- Discussed with nursing, CT surg IMMIGRATION ASSOCIATE
Progress Note - Research Director
Subjective
Date of Service: June 13, 2025
Patient without present complaints. Ambulated around unit without difficulty
Objective
Labs:
06/13/25 03:31
06/13/25 03:31
Labs
Hgb 12.1 g/dL (13.0-18.0) L 06/13/25 03:31
Hct 33.9 % (39.0-52.0) L 06/13/25 03:31
Plt Count 141 10^3/uL (130-400) 06/13/25 03:31
PT 14.2 Sec (11.4-14.6) 06/04/25 08:32
INR 1.05 06/04/25 08:32
Sodium 133 mmol/L (135-145) L 06/13/25 03:31
Potassium 4.1 mmol/L (3.5-5.1) 06/13/25 03:31
BUN 27 mg/dl (9-20) H 06/13/25 03:31
Creatinine 1.1 mg/dL (0.7-1.3) 06/13/25 03:31
Glucose 104 mg/dl (70-99) H 06/13/25 03:31
Vital Signs and I&O:
Vital Signs
Temp Pulse Resp BP Pulse Ox
98.4 F 74 16 144/74 95
06/13/25 11:01 06/13/25 11:01 06/13/25 11:01 06/13/25 11:08 06/13/25 11:01
Vital Signs
Temp Pulse Resp BP Pulse Ox
98.4 F 74 16 144/74 95
06/13/25 11:01 06/13/25 11:01 06/13/25 11:01 06/13/25 11:08 06/13/25 11:01
Intake & Output
06/11/25 06/12/25 06/13/25 06/14/25
07:59 07:59 07:59 07:59
Intake Total 1900 / 1900
Output Total 1520 / 1520
Balance 380 / 380
Physical Exam
Physical Exam
GEN: No distress, awake, alert, oriented, EOMI x3
HEENT: supple, anicteric, mmm
LUNGS: CTA bilaterally, no wheezes/rales
CV: Reg, S1/S2, 1/6 syst LSB
ABD: soft, BS+, NT/ND
EXT: No cyanosis, clubbing, edema
NEURO: Gross non-focal
SKIN: Warm, pink, dry. No rash
--- NOTE | 2025-06-13 15:31 | PTCARENOTE ---
Pt seen by CT surgery adn as well as Cardiac Rehab. Pt walking around entire unit without problem, no further episodes of memory loss/confusion. Echo done and reviewed. Telemetry and IV device removed. Discharge instructions reviewed
with pt and his regarding activity and driving restrictions, wound care, medications and their possible side effects, reporting cares and concerns and follow up appts. Very good understanding verbalized. Pt plans to change timing of his
appointments. Pt escorted out via wheelchair and discharged to home.
== END 2025-06-13 14:45 | disposition home or self-care (01) | DRG 266 ==
LOC: IVU 07:19
PROVIDERS: Nurse Practitioner; ADMITTING PHYSICIAN Thoracic Surgery (Cardiothoracic Vascular Surgery); ATTENDING PHYSICIAN Thoracic Surgery (Cardiothoracic Vascular Surgery); CONSULT PHYSICIAN Internal Medicine Interventional Cardiology; FAMILY PHYSICIAN Family Medicine
PROC: 02RF38Z Replacement of Aortic Valve with Zooplastic Tissue, Percutaneous Approach (ICD-10-PCS; 2025-06-12)
DX: I35.0 Nonrheumatic aortic (valve) stenosis (principal); Z00.6 Encounter for examination for normal comparison and control in clinical research program; I50.33 Acute on chronic diastolic (congestive) heart failure; R41.0 Disorientation, unspecified; I95.9 Hypotension, unspecified; R00.1 Bradycardia, unspecified; I11.0 Hypertensive heart disease with heart failure; E78.00 Pure hypercholesterolemia, unspecified; I45.10 Unspecified right bundle-branch block; I25.10 Atherosclerotic heart disease of native coronary artery without angina pectoris; Z95.5 Presence of coronary angioplasty implant and graft; Z79.82 Long term (current) use of aspirin; Z79.02 Long term (current) use of antithrombotics/antiplatelets
CPT/HCPCS: 33361; 36415; 36600; 71045; 71046; 80048; 80053; 81003; 81015; 82248; 82805; 82962; 83036; 83880; 85025; 85027; 85347; 85610; 86850; 86900; 86901; 87070; 93005; 93308; 93321; 93325; C1760; C1769; C1894; Q9967

== ENCOUNTER → 2025-07-21 09:16 | Outpatient (REF) | payer MEDICARE, BC, SELFPAY | LOC: HWRCS 09:16 | PROVIDERS: ATTENDING PHYSICIAN Internal Medicine Cardiovascular Disease; FAMILY PHYSICIAN Family Medicine | DX: Z95.2 Presence of prosthetic heart valve (principal); I35.0 Nonrheumatic aortic (valve) stenosis | CPT/HCPCS: 93306 ==